=== PATIENT | male | born 1940 | race Caucasian/White ===

== ENCOUNTER 2024-03-26 03:51 | Emergency (ER) | payer MEDICARE, SELFPAY ==
[2024-03-26 04:02] VITALS: BP 152/80
[2024-03-26 04:37] VITALS: BMI 24.4
[2024-03-26 05:03] LABS: % Basophils 0.5 % (0-2); % Eosinophils 3.6 % (0-6); % Immature Granulocytes 0.3 % (0-0.5); % Lymphocytes 11.5 % (20.5-51.1); % Monocytes 9.6 % (1.7-9.3); % Neutrophils 74.5 % (42.2-75.2); Absolute Eosinophils 0.3 10^3/uL (0-0.7); Absolute Lymphocytes 0.9 10^3/uL (1.2-3.4); Absolute Monocytes 0.7 10^3/uL (0.1-0.6); Absolute Neutrophils 5.6 10^3/uL (1.4-6.5); Hematocrit 36.5 % (39.0-52.0); Hemoglobin 12.2 g/dL (13.0-18.0); Mean Corp Hgb Conc. 33.4 g/dL (33.0-37.0); Mean Corpuscular Hgb 32.6 pg (27.0-31.0); Mean Corpuscular Volume 97.6 fL (80.0-94.0); Mean Platelet Volume 10.5 fL (7.4-10.4); Nucleated Red Blood Cells % 0 % (-); Platelet Count 161 10^3/uL (130-400); Red Blood Cell Count 3.74 10^6/uL (4.70-6.10); Red Cell Dist. Width 13.5 % (11.5-14.5); White Blood Cell Count 7.5 10^3/uL (4.8-10.8)
[2024-03-26 05:26] LABS: ALT (SGPT) 18 U/L (0-50); AST (SGOT) 32 U/L (17-59); Albumin 3.5 g/dl (3.5-5.0); Alkaline Phosphatase 95 U/L (38-126); Blood Urea Nitrogen 33 mg/dl (9-20); Calcium 9.2 mg/dl (8.4-10.2); Carbon Dioxide 29 mmol/L (22-30); Chloride 105 mmol/L (98-107); Estimated Creatinine Clearance 51 ml/min; Glucose 96 mg/dl (70-99); Potassium 4.8 mmol/L (3.5-5.1); Sodium 138 mmol/L (135-145); Total Bilirubin 0.6 mg/dl (0.2-1.3); Total Protein 6.4 g/dl (6.3-8.2); eGFR > 60.00
--- NOTE | 2024-03-26 06:24 | ED.GENMED ---
History of Present Illness
General
Chief Complaint: Abdominal Pain
Source: patient
Time Seen by Provider: 03/26/24 05:07
Travel History
Have you had any contact with someone who has COVID-19?: No
Do you have any symptoms of coronavirus? Fever > 100 degrees, chills, cough, shortness of breath, sore throat, loss of taste or smell, muscle aches, or headache?: No
History of Present Illness
History of Present Illness:
83-year-old male presents to the emergency room complaining of abdominal pain. Pain is located in the epigastrium. It began around 11:30 PM. He describes it as a constant pain that is a 7 out of 10 currently. Nothing seems to make it better or
worse. Not worse with any movement. He denies associated nausea, vomiting, diarrhea or constipation. He denies any history of abdominal surgery. He did not take any medication at home for the pain.
Past History
Past History
ED Past Medical History: Arrthythmia (afib)
Social History
Tobacco: Non-smoker
Alcohol: None
Drug: None
Living: with family
Employment: Retired
Family History
Family History: Other (n.c)
Phy Exam
Physical Exam
Physical Exam:
General: Awake, Alert, Oriented X3. No acute distress.
Vitals: unremarkable
Head: Atraumatic
Eyes: Pupils equal, EOMI
Throat: Airway intact, no exudates
Neck: Trachea midline
Lungs: Clear and equal b/l
Heart: Regular rate, no murmurs
Abd: Soft, tender diffusely but somewhat more tender in the upper abdomen, No pulsatile mass
Neuro: Nonfocal
Skin: Warm, dry, no rash
Extremities: pulses equal b/l, no edema
Course
Orders/Labs/Results
Orders:
Orders
03/26/24 04:53
Complete Blood Count/With Diff Urgent
Comprehensive Metabolic Panel Urgent
Lipase Urgent
Comment: ADD ON
03/26/24 06:22
Add On- LAB Urgent
Tests Added?: lipase
Electrocardiogram (*1) Urgent
Reason for Study: Bradycardia / Tachycardia
EKG- Treatment ONCE
03/26/24 06:23
CT Abd/pelvis W Iv Cont Urgent
Comment:
Reason For Exam: diffuse abd pain
0.9% Sodium Chloride 500 ml [Nss] 500 ml IV BOLUS
HYDROmorphone [Dilaudid] 0.5 mg IV NOW STA
03/26/24 08:23
Urinalysis Reflex To Culture Urgent
Date Specimen was Collected: 03/26/24
Time Specimen was Collected: 08:20
Urine Microscopic Reflex Cult Urgent
Abnormal Lab Results
03/26/24 03/26/24
04:53 08:23
RBC 3.74 L 10^6/uL
(4.70-6.10)
Hgb 12.2 L g/dL
(13.0-18.0)
Hct 36.5 L %
(39.0-52.0)
MCV 97.6 H fL
(80.0-94.0)
MCH 32.6 H pg
(27.0-31.0)
MPV 10.5 H fL
(7.4-10.4)
Absolute Lymphs (auto) 0.9 L 10^3/uL
(1.2-3.4)
Absolute Monos (auto) 0.7 H 10^3/uL
(0.1-0.6)
Lymphocytes % 11.5 L %
(20.5-51.1)
Monocytes % 9.6 H %
(1.7-9.3)
BUN 33 H mg/dl
(9-20)
Ur Occult Blood Reflex Trace A
(Negative)
Urine RBC 16-20 A /HPF
(0-2)
Urine Bacteria (Reflex) Few A
(Negative)
03/26/24 04:53
03/26/24 04:53
Vital Signs
Initial and Last Documented VS:
Initial Vital Signs
Temp Pulse Resp BP Pulse Ox
97.6 F 68 24 152/80 97
03/26/24 04:02 03/26/24 04:02 03/26/24 04:02 03/26/24 04:02 03/26/24 04:02
Last Documented Vital Signs
Temp Pulse Resp BP Pulse Ox
97.6 F 54 14 180/81 97
03/26/24 04:02 03/26/24 06:44 03/26/24 06:44 03/26/24 08:06 03/26/24 06:23
MDM/Problems Addressed
Differential Diagnosis Includes:
cholecystitis, gastritis, kidney stone, UTI
MDM/Problems Addressed:
Patient presents with upper abdominal pain. Also some pain in his back. CT shows hydronephrosis on the left. There is a contrast level noted on delayed images suggesting poor urine flow through the ureter. Beam hardening obscures the distal
ureter and bladder. Patient's urinalysis shows blood in the urine. The overall picture seems consistent with a kidney stone. Do not know the size of the stone statistically speaking it should pass spontaneously. Will treat with analgesia,
antiemetics and the patient will follow-up with his urologist who was not at [facility] urologist. He was given lab results and a copy of his CT scan to take with him.
*Radiology
Radiology exam reviewed: radiology read reviewed
*Pulse Oximetry
Patient hypoxic: no
*EKG
Interpreted by ED Provider?: Yes
Interpretation: abnormal
Heart Rate: 54
Rate: bradycardiac
Rhythm: sinus
[place]: normal axis
Interval: normal interval
QRS Pattern: normal QRS
Ischemia: no ischemia
*Fashion Adviser Interpretation
Rate: bradycardiac
Interpretation: abnormal
Rhythm: sinus
*Critical Care Note
Total Time (30-74mins, 75-104mins- exclusive of procedures): Not Applicable
Patient Management
Social determinants of health affecting care: Strong social support
ED Attending Note
-
Portions of this chart may have been created with voice recognition software.� Occasional wrong word or��sound alike� substitutions may have occurred due to the inherent limitations of voice recognition software.
Discharge Plan
Departure
Patient Disposition: Home (Routine Discharge)
Date of Disposition: 03/26/24
Time of Disposition: 09:13
Patient with high blood pressure during this ER visit?: No
Condition: Fair
Discharge Problem:
Kidney stone
Instructions: Kidney Stones (DC), BLOOD PRESSURE
Prescriptions:
New
oxycodone 5 mg tablet
5 mg PO Q6H PRN (Reason: Pain) Qty: 12 0RF
ondansetron 4 mg tablet,disintegrating
4 mg PO TID PRN (Reason: nausea and vomiting) 5 Days Qty: 20 0RF
No Action
amiodarone 200 mg Tablet
200 mg PO DAILY
Eliquis 2.5 mg Tablet
2.5 mg PO BID
Theragen Tablet
1 tab PO DAILY
saw palmetto 160 mg Capsule
160 mg PO DAILY
finasteride 5 mg Tablet
5 mg PO DAILY
alfuzosin 10 mg Tablet Extended Release 24 Hr
10 mg PO DAILY
calcium carbonate-vitamin D3 [Calcium 500 + D (D3)] 500 mg-3.125 mcg (125 unit) Tablet
1 tab PO DAILY
omega 9-bbc-oye-fish oil [Fish Oil] 1,000 mg (120 mg-180 mg) Capsule
1 cap PO DAILY
Myrbetriq 25 mg Tablet Extended Release 24 Hr
25 mg PO DAILY
turmeric 400 mg Capsule
720 mg PO DAILY
cephalexin 500 mg capsule
500 mg PO Q6H 10 Days Qty: 40 0RF
doxycycline hyclate 100 mg capsule
100 mg PO BID 10 Days Qty: 20 0RF
Referrals:
PRIVATE,PHYSICIAN [Family Provider] -
Interventions
Interventions:
*Risk Screen - Suicide Last Done: 03/26/24 04:02
*General Assessment Last Done: 03/26/24 07:10
*Neglect/Abuse Screening Last Done: 03/26/24 04:02
ED- Fall Risk Assessment Last Done: 03/26/24 08:09
*ED COVID-19 Vaccine History Last Done: 03/26/24 07:10
*Nursing Disposition Last Done: 03/26/24 09:27
ZB-Fgmgiu-Lkkkidceda Assessment Last Done: 03/26/24 04:37
Discharge Date and Time
Discharge Date/Time: 03/26/24 09:28
Print Language: CHADIAN
[2024-03-26 06:35] VITALS: BP 175/88
[2024-03-26] MEDS: DILAUDID 0.5 MG IV (06:38)
[2024-03-26] MEDS: NSS 500 IV (06:39)
[2024-03-26 07:07] VITALS: BP 181/82
[2024-03-26 07:18] LABS: Lipase 81 U/L (23-300)
[2024-03-26 08:06] VITALS: BP 180/81
[2024-03-26 08:46] LABS: Urine Albumin Negative (Neg - Trace); Urine Bilirubin Negative (Negative); Urine Character Clear (Clear); Urine Color Yellow; Urine Glucose Negative (Negative); Urine Ketone Negative (Negative); Urine Leukocyte Negative (Negative); Urine Nitrite Negative (Negative); Urine Occult Blood Trace (Negative); Urine Urobilinogen Negative (Neg - 1+)
[2024-03-26 09:01] LABS: Urine White Cell 0-2 /HPF (0-5)
[2024-03-26 09:02] LABS: Urine Hyaline Cast 0-2 /LPF (0-2)
[2024-03-26 09:03] LABS: Urine Red Blood Cell 16-20 /HPF (0-2)
[2024-03-26 09:04] LABS: Urine Bacteria Few (Negative)
== END 2024-03-26 09:28 | disposition home or self-care (01) ==
LOC: EMR 03:51
PROVIDERS: Student in an Organized Health Care Education/Training Program; EMERGENCY PHYSICIAN Emergency Medicine
DX: N13.2 Hydronephrosis with renal and ureteral calculous obstruction (principal); R31.9 Hematuria, unspecified; I48.91 Unspecified atrial fibrillation; Z79.01 Long term (current) use of anticoagulants; Z88.0 Allergy status to penicillin
CPT/HCPCS: 99285; 96361; 96374; 74177; 80053; 81003; 81015; 83690; 85025; 93005; Q9967

== ENCOUNTER 2024-05-14 13:49 | Emergency (ER) | payer MEDICARE, SELFPAY ==
[2024-05-14] VITALS (7 sets, daily range): BP systolic 135–154; BP diastolic 71–81; PULSE 48–56; BMI 23.4
[2024-05-14 14:13] LABS: % Basophils 0.4 % (0-2); % Eosinophils 2.4 % (0-6); % Immature Granulocytes 0.3 % (0-0.5); % Lymphocytes 11.5 % (20.5-51.1); % Monocytes 9.7 % (1.7-9.3); % Neutrophils 75.7 % (42.2-75.2); Absolute Eosinophils 0.2 10^3/uL (0-0.7); Absolute Lymphocytes 0.8 10^3/uL (1.2-3.4); Absolute Monocytes 0.7 10^3/uL (0.1-0.6); Absolute Neutrophils 5.4 10^3/uL (1.4-6.5); Hematocrit 29.8 % (39.0-52.0); Hemoglobin 9.9 g/dL (13.0-18.0); Mean Corp Hgb Conc. 33.2 g/dL (33.0-37.0); Mean Corpuscular Hgb 32.9 pg (27.0-31.0); Nucleated Red Blood Cells % 0 % (-); Platelet Count 203 10^3/uL (130-400); Red Blood Cell Count 3.01 10^6/uL (4.70-6.10); Red Cell Dist. Width 14.2 % (11.5-14.5); White Blood Cell Count 7.2 10^3/uL (4.8-10.8)
--- NOTE | 2024-05-14 14:14 | ED.GENMED ---
History of Present Illness
General
Chief Complaint: Dizziness
Source: patient and spouse
Time Seen by Provider: 05/14/24 13:58
History of Present Illness
History of Present Illness:
83-year-old male with past medical history of atrial fibrillation status post left knee replacement 1 month ago presenting to the emergency department for evaluation of approximately 1 month of intermittent lightheadedness and dizziness, worse over
the last week with the patient describing 2 different types of dizziness stating that often times when he goes from a sitting to standing position will feel lightheaded and sometimes almost syncopized but has also experienced 2 episodes in the last
week of vertigo where he describes the room spinning and then will resolve once he sits still. Patient denies any other symptoms including headache, visual disturbances, focal weakness or numbness, chest pain, palpitations, shortness of breath,
fever or recent upper respiratory infections. Denies any history of similar. Has not sought any medical care up until today when he went to the primary care doctor at [facility] where the patient and his spouse reside and they were referred to
the emergency department for further evaluation.
Past History
Past History
ED Past Medical History: Arrthythmia (afib)
ED Past Surgical History: Orthopedic
Social History
Tobacco: Non-smoker
Alcohol: None
Drug: None
Personal:
Living: with family
Employment: Retired
Family History
Family History: Other (No history of stroke or neurologic events)
Review of Systems
Review of Systems
All Other Systems: ROS reviewed and negative except as documented in HPI and ROS
Phy Exam
Physical Exam
Physical Exam:
GENERAL: Alert , in no apparent distress
HEAD: NCAT
EYE: pupils equal and reactive, PERRL, EOMI, no nystagmus
NECK: Supple
ENT: o/p clr, mmm.
CARDIAC: Bradycardic rate and rhythm, reportedly normal per patient, systolic murmur noted
LUNGS: Clear breath sounds bilaterally, no acute respiratory distress, no wheezes/rales/rhonchi
NEUROLOGICAL: Alert and oriented, no focal neuro deficits, No dysmetria or ataxia appreciated
SKIN: Warm and dry, skin intact.
MUSCULOSKELETAL: No edema, well perfused.
PSYCH: Normal and appropriate interaction.
Scores
Heart Failure Risk
Heart Failure Risk Score: Not Applicable
Heart Score for Chest Pain Patients
STEMI patient?: Not applicable
Withdrawal Assessment of Alcohol
Withdrawal Assessment Completed?: Not applicable
Course
Orders/Labs/Results
Orders:
Orders
05/14/24 13:52
Electrocardiogram (*1) Urgent
Reason for Study: Chest Pain
Cardiac Monitoring- Treatment ONCE
EKG- Treatment ONCE
IV Insert/Care/Rem.- Treatment PRN
O2 Therapy [RESP] Urgent
Titrate/Wean O2 to maintain O2 sat greater than (%): 90
Special Instructions: Maintain sats >/=90%
Pulse Ox/spot Check [RESP] Urgent
Quantity: 1
Special Instructions: ON ROOM AIR
05/14/24 14:06
Complete Blood Count/With Diff Urgent
Comprehensive Metabolic Panel Urgent
Troponin I Urgent
05/14/24 14:11
Orthostatic VS- Treatment ONCE
Meclizine [Antivert] 25 mg PO NOW STA
PT Consult [Pt Eval And Treat] Urgent
Treatment: vertigo
Activity Level: Ambulate
05/14/24 14:13
CT Head W/o Iv Contrast Urgent
Comment:
Reason For Exam: dizziness/vertigo, hx of afib
05/14/24 15:42
Urinalysis Reflex To Culture Urgent
Abnormal Lab Results
05/14/24
14:06
RBC 3.01 L 10^6/uL
(4.70-6.10)
Hgb 9.9 L g/dL
(13.0-18.0)
Hct 29.8 L %
(39.0-52.0)
MCV 99.0 H fL
(80.0-94.0)
MCH 32.9 H pg
(27.0-31.0)
Absolute Lymphs (auto) 0.8 L 10^3/uL
(1.2-3.4)
Absolute Monos (auto) 0.7 H 10^3/uL
(0.1-0.6)
Neutrophils % 75.7 H %
(42.2-75.2)
Lymphocytes % 11.5 L %
(20.5-51.1)
Monocytes % 9.7 H %
(1.7-9.3)
Chloride 108 H mmol/L
(98-107)
BUN 28 H mg/dl
(9-20)
Glucose 103 H mg/dl
(70-99)
Total Protein 5.7 L g/dl
(6.3-8.2)
Albumin 3.0 L g/dl
(3.5-5.0)
05/14/24 14:06
05/14/24 14:06
Vital Signs
Initial and Last Documented VS:
Initial Vital Signs
Pulse Ox
98
05/14/24 13:54
Last Documented Vital Signs
Temp Pulse Resp BP Pulse Ox
97.5 F 53 23 149/73 99
05/14/24 13:55 05/14/24 15:30 05/14/24 15:30 05/14/24 15:27 05/14/24 15:30
MDM/Problems Addressed
Differential Diagnosis Includes:
Orthostasis, BPPV, labyrinthitis, CVA considered given patient's history of A-fib and is on a half dose of Eliquis, symptomatic bradycardia, cardiac valvular dysfunction
MDM/Problems Addressed:
83-year-old male presenting to the emergency department for evaluation of 1 month of lightheadedness but also experiencing intermittent episodes of vertigo. At present time patient reports he is asymptomatic but also notes that he is not going from
a sitting to standing position when symptoms seem to be worse. Patient was noted to be bradycardic however he reports that this is his normal. Will check labs, orthostatic vital signs, CT of the head. Will also obtain physical therapy
consultation for vertigo evaluation. Meclizine ordered for vertigo. Reassessment pending
Chronic conditions affecting care: Arrhythmia
*Radiology
Radiology exam reviewed: radiology read reviewed
*Pulse Oximetry
Patient hypoxic: no
*EKG
Interpreted by ED Provider?: Yes
Comparison EKG: changes noted
Heart Rate: 49
Rate: bradycardiac
Rhythm: sinus arrhythmia
[place]: left axis deviation
*Train Station Agent Interpretation
Rate: bradycardiac
Rhythm: sinus
*Critical Care Note
Total Time (30-74mins, 75-104mins- exclusive of procedures): Not Applicable
Data Reviewed
Review of Other/Old Records Reveals: Records
Source: patient
Comment
Comment:
Patient labs show mild anemia and pre-renal azotemia. Anemia could be from recent surgery. Patient also noted he did have small blood in urine a little bit ago but now this is clear. Prerenal azotemia likely from patient not drinking enough fluid as
he notes he has been told in the past to increase his water intake. Patient orthostatics without any abnormalities. Notes his vertigo sensation is resolved with antivert given. Awaiting PT consult with anticipated discharge home. I did discuss with
patient he will need to follow up with PCP to have his hgb rechecked as well as repeat UA.
Patient Management
Escalation/DeEscalation of care consider admission/obs:
Patient seen by physical therapy and was able to ambulate without any evidence for ataxia. At this time patient is stable for discharge home. Prescription for meclizine provided. Patient will follow-up with his primary care provider as well as
with outpatient physical therapy for continued vestibular treatment. Patient aware of return precautions to the ER. Otherwise stable for discharge home.
ED Attending Note
-
Portions of this chart may have been created with voice recognition software.� Occasional wrong word or��sound alike� substitutions may have occurred due to the inherent limitations of voice recognition software.
Discharge Plan
Departure
Patient Disposition: Home (Routine Discharge)
Date of Disposition: 05/14/24
Time of Disposition: 16:48
Patient with high blood pressure during this ER visit?: Yes
Discharge Problem:
Vertigo
Instructions: Vertigo (a Type of Dizziness) (DC)
Prescriptions:
New
meclizine 25 mg tablet
25 mg PO BID PRN (Reason: dizziness) Qty: 10 0RF
No Action
amiodarone 200 mg Tablet
200 mg PO DAILY
Eliquis 2.5 mg Tablet
2.5 mg PO BID
Theragen Tablet
1 tab PO DAILY
saw palmetto 160 mg Capsule
160 mg PO DAILY
finasteride 5 mg Tablet
5 mg PO DAILY
alfuzosin 10 mg Tablet Extended Release 24 Hr
10 mg PO DAILY
calcium carbonate-vitamin D3 [Calcium 500 + D (D3)] 500 mg-3.125 mcg (125 unit) Tablet
1 tab PO DAILY
omega 4-sba-qxa-fish oil [Fish Oil] 1,000 mg (120 mg-180 mg) Capsule
1 cap PO DAILY
Myrbetriq 25 mg Tablet Extended Release 24 Hr
25 mg PO DAILY
turmeric 400 mg Capsule
720 mg PO DAILY
cephalexin 500 mg capsule
500 mg PO Q6H 10 Days Qty: 40 0RF
doxycycline hyclate 100 mg capsule
100 mg PO BID 10 Days Qty: 20 0RF
oxycodone 5 mg tablet
5 mg PO Q6H PRN (Reason: Pain) Qty: 12 0RF
ondansetron 4 mg tablet,disintegrating
4 mg PO TID PRN (Reason: nausea and vomiting) 5 Days Qty: 20 0RF
Referrals:
Faith Rhodes MD [Family Provider] -
Interventions
Interventions:
*Risk Screen - Suicide Last Done: 05/14/24 14:03
*General Assessment Last Done: 05/14/24 14:03
*Neglect/Abuse Screening Last Done: 05/14/24 14:03
ED- Fall Risk Assessment Last Done: 05/14/24 14:04
*ED COVID-19 Vaccine History Last Done: 05/14/24 14:03
ED- Neurological Assessment Last Done: 05/14/24 14:04
ED- Cardiac Assessment Last Done: 05/14/24 14:04
Discharge Date and Time
Print Language: YAKUT
[2024-05-14 14:40] LABS: Troponin I < 0.012 ng/ml
[2024-05-14 14:42] LABS: ALT (SGPT) 13 U/L (0-50); AST (SGOT) 24 U/L (17-59); Alkaline Phosphatase 92 U/L (38-126); Blood Urea Nitrogen 28 mg/dl (9-20); Calcium 8.8 mg/dl (8.4-10.2); Carbon Dioxide 23 mmol/L (22-30); Chloride 108 mmol/L (98-107); Estimated Creatinine Clearance 56 ml/min; Glucose 103 mg/dl (70-99); Potassium 3.9 mmol/L (3.5-5.1); Sodium 136 mmol/L (135-145); Total Bilirubin 0.5 mg/dl (0.2-1.3); Total Protein 5.7 g/dl (6.3-8.2); eGFR > 60.00
[2024-05-14] MEDS: ANTIVERT 25 MG PO (14:56)
== END 2024-05-14 17:25 | disposition home or self-care (01) ==
LOC: EMR 13:49
PROVIDERS: EMERGENCY PHYSICIAN Emergency Medicine; FAMILY PHYSICIAN Internal Medicine Geriatric Medicine
DX: R42 Dizziness and giddiness (principal); R00.1 Bradycardia, unspecified; R79.89 Other specified abnormal findings of blood chemistry; R03.0 Elevated blood-pressure reading, without diagnosis of hypertension; D64.9 Anemia, unspecified; I48.91 Unspecified atrial fibrillation; Z96.652 Presence of left artificial knee joint; Z98.890 Other specified postprocedural states; Z79.01 Long term (current) use of anticoagulants; Z88.0 Allergy status to penicillin
CPT/HCPCS: 99285; 94760; 70450; 80053; 84484; 85025; 93005

== ENCOUNTER → 2024-05-27 07:56 | Outpatient (REF) | payer MEDICARE, SELFPAY | LOC: WOUND 07:56 | PROVIDERS: ATTENDING PHYSICIAN Surgery; FAMILY PHYSICIAN Internal Medicine Geriatric Medicine | DX: L89.152 Pressure ulcer of sacral region, stage 2 (principal); L89.210 Pressure ulcer of right hip, unstageable; I48.91 Unspecified atrial fibrillation; Z79.01 Long term (current) use of anticoagulants | CPT/HCPCS: 99204 ==

== ENCOUNTER → 2024-06-02 11:22 | Outpatient (REF) | payer MEDICARE, SELFPAY | LOC: WOUND 11:22 | PROVIDERS: ATTENDING PHYSICIAN Surgery; FAMILY PHYSICIAN Internal Medicine Geriatric Medicine | DX: L89.152 Pressure ulcer of sacral region, stage 2 (principal); L89.210 Pressure ulcer of right hip, unstageable; I48.91 Unspecified atrial fibrillation; Z79.01 Long term (current) use of anticoagulants | CPT/HCPCS: 11042 ==

== ENCOUNTER → 2024-06-16 13:24 | Outpatient (REF) | payer MEDICARE, SELFPAY | LOC: WOUND 13:24 | PROVIDERS: ATTENDING PHYSICIAN Surgery; FAMILY PHYSICIAN Internal Medicine Geriatric Medicine | DX: L89.152 Pressure ulcer of sacral region, stage 2 (principal); L89.210 Pressure ulcer of right hip, unstageable; I48.91 Unspecified atrial fibrillation; Z79.01 Long term (current) use of anticoagulants | CPT/HCPCS: 99213 ==

== ENCOUNTER → 2024-06-26 13:12 | Outpatient (REF) | payer MEDICARE, SELFPAY | LOC: WOUND 13:12 | PROVIDERS: ATTENDING PHYSICIAN Surgery; FAMILY PHYSICIAN Internal Medicine Geriatric Medicine | DX: L89.152 Pressure ulcer of sacral region, stage 2 (principal); L89.210 Pressure ulcer of right hip, unstageable; I48.91 Unspecified atrial fibrillation; Z79.01 Long term (current) use of anticoagulants | CPT/HCPCS: 11042 ==

== ENCOUNTER 2024-08-10 09:58 | Emergency (ER) | payer MEDICARE, SELFPAY ==
--- NOTE | 2024-08-10 10:02 | ED.GENMED ---
History of Present Illness
<Eva Ayala PA-C - Last Filed: 08/10/24 13:19>
General
Chief Complaint: Musculo-Skeletal Complaint
Source: patient
Exam Limitations: none
Time Seen by Provider: 08/10/24 10:00
Nursing documentation reviewed up to this point in time: agreed with
History of Present Illness
History of Present Illness:
83-year-old male with past medical history of A-fib on Eliquis, vertigo presents emergency department today with concerns of right sided hip pain following a fall. Patient reports that he lives at [facility] with his and states that when he
got out of bed this morning morning, he got a sudden xie of vertigo and lightheadedness and fell onto his right side. He not lose consciousness. He did not hit his head, he denies neck pain. He got up on his own without any issues and walked
back to bed. When he tried to go back to bed, he noticed a wet sensation under his right hip and noticed that his pressure wound over his hip was bleeding. He states that his and him could not get the bleeding under control. She also started
to have an acute worsening of his hip pain. He does have a hip replacement on that side. Denies any other concerns at this time, he states that he no longer feels dizzy or lightheadedness or sensation of vertigo, states that he did not injure his
left side, denies any pains upper extremities.
Past History
<Eva Ayala PA-C - Last Filed: 08/10/24 13:19>
Past History
ED Past Medical History: Arrthythmia (afib)
ED Past Surgical History: Orthopedic
Social History
Tobacco: Non-smoker
Alcohol: None
Drug: None
Personal:
Living: with family
Employment: Retired
Family History
Family History: Other (No history of stroke or neurologic events)
Review of Systems
<Eva Ayala PA-C - Last Filed: 08/10/24 13:19>
Review of Systems
All Other Systems: ROS reviewed and negative except as documented in HPI and ROS
Phy Exam
<Eva Ayala PA-C - Last Filed: 08/10/24 13:19>
Physical Exam
Physical Exam:
General: Patient is well appearing and in no acute distress; non-toxic
Skin: There is a 3.5 cm superficial pressure ulcer noted to the right anterior hip with active bleeding noted
Head: Normocephalic, atraumatic
Eyes: Sclera non-icteric. EOMs intact.
Neck: No tenderness to palpation of the cervical spine
Cardiac: Patient is bradycardic otherwise regular rhythm, no murmurs
Peripheral Vascular: No lower extremity swelling or edema, 2+ DP and PT pulses bilaterally
Pulm: Normal respiratory effort, no wheezes, rales, rhonchi
Musculoskeletal: Right hip pain with flexion, swelling noted surrounding proximal femur
Neuro: CN II-XII intact, no focal neurologic deficits. Sensation intact.
Psychiatric: Appropriate mood and affect.
Course
<Eva Ayala PA-C - Last Filed: 08/10/24 13:19>
Orders/Labs/Results
Orders:
Orders
08/10/24 10:20
Morphine Sulfate 4 mg IV NOW STA
CR Hip - RT w/wo Pel 2-3 Vw* Urgent
Reason For Exam: right hip pain following fall
Include a pelvis x-ray?: Yes
Vital Signs
Initial and Last Documented VS:
Initial Vital Signs
Temp Pulse Resp BP Pulse Ox
97.9 F 50 16 174/78 99
08/10/24 10:04 08/10/24 10:04 08/10/24 10:04 08/10/24 10:04 08/10/24 10:04
Last Documented Vital Signs
Temp Pulse Resp BP Pulse Ox
97.9 F 52 24 172/81 98
08/10/24 10:04 08/10/24 12:30 08/10/24 12:30 08/10/24 12:00 08/10/24 12:30
<Vladimir Small DO - Last Filed: 08/10/24 12:10>
Orders/Labs/Results
Orders:
Orders
08/10/24 10:20
Morphine Sulfate 4 mg IV NOW STA
CR Hip - RT w/wo Pel 2-3 Vw* Urgent
Reason For Exam: right hip pain following fall
Include a pelvis x-ray?: Yes
Vital Signs
Initial and Last Documented VS:
Initial Vital Signs
Temp Pulse Resp BP Pulse Ox
97.9 F 50 16 174/78 99
08/10/24 10:04 08/10/24 10:04 08/10/24 10:04 08/10/24 10:04 08/10/24 10:04
Last Documented Vital Signs
Temp Pulse Resp BP Pulse Ox
97.9 F 52 24 172/81 98
08/10/24 10:04 08/10/24 12:30 08/10/24 12:30 08/10/24 12:00 08/10/24 12:30
<Eva Ayala PA-C - Last Filed: 08/10/24 13:19>
MDM/Problems Addressed
Differential Diagnosis Includes:
femoral neck fracture, hip dislocation, sprain/strain
MDM/Problems Addressed:
83-year-old male past medical history of A-fib on [facility] presents emergency department today with right hip pain following a fall that occurred last night. Patient was able to get up on his own and ambulate without difficulty and returned to sleep
when he started to feel moisture underneath his right hip. Patient then noticed that his chronic pressure decubitus wound was bleeding. Patient states that him and his in her apartment at [facility] could not get the bleeding under
control. On physical exam, he is well-appearing, he has around a 3.5 cm decubitus ulcer on the right with active bleeding, he also has swelling surrounding this area, likely representing palpable hematoma. He has pain with hip flexion. He insist
that he did not hit his head or injure his neck, he is no tenderness palpation of the cervical spine, no signs of head trauma. His x-ray is negative for fracture, does show prominent soft tissue swelling lateral to greater trochanter, likely since
hematoma. Patient is not in A-fib currently, I did recommend taking his today to his vending machine filler regarding possibly with holding Eliquis for few days. Discussed wound care with patient, we did place Surgicel over the wound to assist with
bleeding. Patient states that he feels safe to go home with the help of his walker and his at home. He states that he did not have any issues ambulating earlier. Patient stable for discharge. Patient has had no symptoms of dizziness or
vertigo while here in the emergency department
Chronic conditions affecting care:
afib on eliquis
<Eva Ayala PA-C - Last Filed: 08/10/24 13:19>
*Pulse Oximetry
Patient hypoxic: no
*Critical Care Note
Total Time (30-74mins, 75-104mins- exclusive of procedures): Not Applicable
Data Reviewed
Review of Other/Old Records Reveals: Records (Reviewed previous ER physician documentation from 05/14/2024, patient seen for vertigo, patient had PT evaluation consistent with peripheral vertigo,) and Discharge Summary (No discharge summary in
[facility] to review )
Source: patient and records
Prescriptions/Medications Considered But Not Given:
n/a
Further Testing Considered But Not Given:
n/a
<Eva Ayala PA-C - Last Filed: 08/10/24 13:19>
Patient Management
Escalation/DeEscalation of care consider admission/obs:
admit not indicated, patient stable for discharge
ED Attending Note
<Eva Ayala PA-C - Last Filed: 08/10/24 13:19>
-
Portions of this chart may have been created with voice recognition software.� Occasional wrong word or��sound alike� substitutions may have occurred due to the inherent limitations of voice recognition software.
<Vladimir Small DO - Last Filed: 08/10/24 12:10>
ED Attending Note
Patient seen and examined by attending physician: Yes
I performed the substantive portion of visit, reviewed & personally made and approve the management plan that is documented in note by myself or XOCHILT.: Yes
I performed a history and physical exam of patient and discussed management with resident, I reviewed resident's note and agree with documented findings and plan of care.: Yes
ED Attending Note:
I evaluated the patient at bedside. There is a soft tissue hematoma near the site of the decubitus ulcer/chronic wound over the right greater trochanteric region. Mild oozing of blood noted�Surgicel pressure dressing placed.
Discharge Plan
Departure
Patient Disposition: Home (Routine Discharge)
Date of Disposition: 08/10/24
Time of Disposition: 12:29
Patient with high blood pressure during this ER visit?: Yes
Condition: Good
Discharge Problem:
Acute pain of right hip, Hematoma
Instructions: Hip Pain ED, BLOOD PRESSURE, Hematoma
Prescriptions:
No Action
amiodarone 200 mg Tablet
200 mg PO DAILY
Eliquis 2.5 mg Tablet
2.5 mg PO BID
Theragen Tablet
1 tab PO DAILY
saw palmetto 160 mg Capsule
160 mg PO DAILY
finasteride 5 mg Tablet
5 mg PO DAILY
alfuzosin 10 mg Tablet Extended Release 24 Hr
10 mg PO DAILY
calcium carbonate-vitamin D3 [Calcium 500 + D (D3)] 500 mg-3.125 mcg (125 unit) Tablet
1 tab PO DAILY
omega 2-qjd-vgm-fish oil [Fish Oil] 1,000 mg (120 mg-180 mg) Capsule
1 cap PO DAILY
Myrbetriq 25 mg Tablet Extended Release 24 Hr
25 mg PO DAILY
turmeric 400 mg Capsule
720 mg PO DAILY
cephalexin 500 mg capsule
500 mg PO Q6H 10 Days Qty: 40 0RF
doxycycline hyclate 100 mg capsule
100 mg PO BID 10 Days Qty: 20 0RF
oxycodone 5 mg tablet
5 mg PO Q6H PRN (Reason: Pain) Qty: 12 0RF
ondansetron 4 mg tablet,disintegrating
4 mg PO TID PRN (Reason: nausea and vomiting) 5 Days Qty: 20 0RF
meclizine 25 mg tablet
25 mg PO BID PRN (Reason: dizziness) Qty: 10 0RF
Referrals:
Faith Rhodes MD [Family Provider] -
[facility] - Call in 1-3 days for appt
Activity Restrictions/Additional Instructions:
Please change nonadherent pad once daily. You can put bacitracin over the wound, followed by nonadherent pads. Please not remove Surgicel. This will dissolve. Please follow-up with your wound care nurse.
Please use your walker at all times at home. Please call your vending machine filler regarding dosing considering your right hip hematoma.
Please return to the emergency department should you experience dizziness, lightheadedness, chest pain, shortness of breath, weakness on one-sided body versus the other, difficulty ambulating, headache, difficulty speaking, or any other signs or
symptoms concerning to you.
Interventions
Interventions:
*Risk Screen - Suicide Last Done: 08/10/24 10:04
*General Assessment Last Done: 08/10/24 10:04
*Neglect/Abuse Screening Last Done: 08/10/24 10:04
ED- Fall Risk Assessment Last Done: 08/10/24 10:04
*ED COVID-19 Vaccine History Last Done: 08/10/24 10:04
*Nursing Disposition Last Done: 08/10/24 12:54
ED-Musculoskeletal Assessment Last Done: 08/10/24 10:04
Discharge Date and Time
Discharge Date/Time: 08/10/24 12:55
Print Language: NIGERIAN
[2024-08-10 10:04] VITALS: BP 174/78; BMI 22.4
[2024-08-10] MEDS: MORPHINE SULFATE 4 MG IV (10:32)
[2024-08-10 11:00] VITALS: BP 141/74
[2024-08-10 12:00] VITALS: BP 172/81
== END 2024-08-10 12:55 | disposition home or self-care (01) ==
LOC: EMR 09:58
PROVIDERS: EMERGENCY PHYSICIAN Emergency Medicine; FAMILY PHYSICIAN Internal Medicine Geriatric Medicine
DX: S70.01XA Contusion of right hip, initial encounter (principal); W06.XXXA Fall from bed, initial encounter; I48.91 Unspecified atrial fibrillation; Z79.01 Long term (current) use of anticoagulants
CPT/HCPCS: 99283; 73502

== ENCOUNTER 2024-09-02 14:07 | Inpatient (IN) | payer OTHER, SELFPAY ==
[2024-09-02] VITALS (9 sets, daily range): BP systolic 131–172; BP diastolic 64–81; PULSE 70; O2SAT 96; BMI 23.2; BMI 23.7
[2024-09-02] MEDS: DILAUDID 0.5 MG IV ×2 (10:05→13:36)
--- NOTE | 2024-09-02 10:09 | ED.MUSCINJ ---
HPI-Injury
General
Chief Complaint: Extremity Pain (non-traumatic)
Source: patient
Exam Limitations: none
Time Seen by Provider: 09/02/24 09:31
History of Present Illness-Injury
Initial Injury comments:
83-year-old male presents to complaining of persistent and increasing right hip pain. The pain worsened throughout the night getting up to go to the bathroom. He has a history of hip replacement on this side. He also has an ongoing wound to the
lateral aspect of his right hip. He was seen here earlier this month after a fall onto his right hip and was found not to have a fracture was found to have a hematoma. No other complaints at this time
Past History
Past History
ED Past Medical History: Arrthythmia (afib)
ED Past Surgical History: Orthopedic
Social History
Tobacco: Non-smoker
Alcohol: None
Drug: None
Personal:
Living: with family
Employment: Retired
Family History
Family History: Other (No history of stroke or neurologic events)
Phy Exam
Physical Exam
Physical Exam:
General: Well-appearing male no acute respiratory distress
HEENT: Normocephalic atraumatic
Heart: Regular rate and rhythm no murmurs
Lungs: Clear no wheeze
Musculoskeletal exam: Right hip tender laterally. The right leg is shortened compared to the left but this is chronic. Any internal or external rotation of the right hip reproduces pain
Skin: Deep wound lateral aspect right hip
Injury Course
Orders/Labs/Results
Orders:
Orders
09/02/24 09:37
CT Pelvis W/o Iv Contrast Urgent
Comment:
Reason For Exam: right hip pain
09/02/24 09:56
HYDROmorphone [Dilaudid] 0.5 mg IV NOW STA
09/02/24 10:05
Complete Blood Count/With Diff Urgent
Comprehensive Metabolic Panel Urgent
09/02/24 11:20
PT Consult [Pt Eval And Treat] Urgent
Activity Level: Ambulate
09/02/24 13:02
HYDROmorphone [Dilaudid] 0.5 mg IV NOW STA
Abnormal Lab Results
09/02/24
10:05
WBC 12.6 H 10^3/uL
(4.8-10.8)
RBC 3.32 L 10^6/uL
(4.70-6.10)
Hgb 10.4 L g/dL
(13.0-18.0)
Hct 32.3 L %
(39.0-52.0)
MCV 97.3 H fL
(80.0-94.0)
MCH 31.3 H pg
(27.0-31.0)
MCHC 32.2 L g/dL
(33.0-37.0)
Abs Immat Gran (auto) 0.1 H 10^3/uL
(0-0.05)
Absolute Neuts (auto) 10.8 H 10^3/uL
(1.4-6.5)
Absolute Lymphs (auto) 0.5 L 10^3/uL
(1.2-3.4)
Absolute Monos (auto) 0.8 H 10^3/uL
(0.1-0.6)
Neutrophils % 86.2 H %
(42.2-75.2)
Lymphocytes % 3.9 L %
(20.5-51.1)
BUN 23 H mg/dl
(9-20)
Total Protein 6.2 L g/dl
(6.3-8.2)
Albumin 2.9 L g/dl
(3.5-5.0)
09/02/24 10:05
09/02/24 10:05
MDM/Problems Addressed
Differential Diagnosis Includes:
Continued had increased right hip pain. History of right hip replacement. Consider occult fracture versus dislocation versus worsening hematoma. No fever to suggest infectious source
*Critical Care Note
Total Time (30-74mins, 75-104mins- exclusive of procedures): Not Applicable
Update Note
Update Note:
Patient had CT of pelvis today which is negative for fracture. Seen by PT unable to bear weight secondary to pain. Reexamined wound. There is a 2 cm wound on the lateral right hip with purulent drainage. No surrounding erythema. Question
possible underlying infectious process. Patient unable to COVID back to independent living at [facility]. Will keep in hospital for further evaluation
ED Attending Note
-
Portions of this chart may have been created with voice recognition software.� Occasional wrong word or��sound alike� substitutions may have occurred due to the inherent limitations of voice recognition software.
Discharge Plan
Departure
Patient Disposition: Admit
Date of Disposition: 09/02/24
Time of Disposition: 13:05
Admit to: Med/Surg
Presentation/result/management discussed w/ accepting MD/DO: Hospitalist
Discharge Problem:
Acute right hip pain
Prescriptions:
No Action
amiodarone 200 mg Tablet
200 mg PO DAILY
Eliquis 2.5 mg Tablet
2.5 mg PO BID
Theragen Tablet
1 tab PO DAILY
saw palmetto 160 mg Capsule
160 mg PO DAILY
finasteride 5 mg Tablet
5 mg PO DAILY
alfuzosin 10 mg Tablet Extended Release 24 Hr
10 mg PO DAILY
calcium carbonate-vitamin D3 [Calcium 500 + D (D3)] 500 mg-3.125 mcg (125 unit) Tablet
1 tab PO DAILY
omega 7-avi-wid-fish oil [Fish Oil] 1,000 mg (120 mg-180 mg) Capsule
1 cap PO DAILY
Myrbetriq 25 mg Tablet Extended Release 24 Hr
25 mg PO DAILY
turmeric 400 mg Capsule
720 mg PO DAILY
cephalexin 500 mg capsule
500 mg PO Q6H 10 Days Qty: 40 0RF
doxycycline hyclate 100 mg capsule
100 mg PO BID 10 Days Qty: 20 0RF
oxycodone 5 mg tablet
5 mg PO Q6H PRN (Reason: Pain) Qty: 12 0RF
ondansetron 4 mg tablet,disintegrating
4 mg PO TID PRN (Reason: nausea and vomiting) 5 Days Qty: 20 0RF
meclizine 25 mg tablet
25 mg PO BID PRN (Reason: dizziness) Qty: 10 0RF
Referrals:
Donovan Ellison DO [Primary Care Provider] -
Faith Rhodes MD [Family Provider] -
Interventions
Interventions:
*Risk Screen - Suicide Last Done: 09/02/24 09:27
*General Assessment Last Done: 09/02/24 09:27
*Neglect/Abuse Screening Last Done: 09/02/24 09:27
ED- Fall Risk Assessment Last Done: 09/02/24 11:01
*ED COVID-19 Vaccine History Last Done: 09/02/24 09:27
ED-Skin Assessment Last Done: 09/02/24 09:40
ED-Peripheral Vascular Assessment Last Done: 09/02/24 09:40
ED-Musculoskeletal Assessment Last Done: 09/02/24 09:40
Discharge Date and Time
Print Language: YAKUT
[2024-09-02 10:16] LABS: % Basophils 0.3 % (0-2); % Eosinophils 2.5 % (0-6); % Immature Granulocytes 0.5 % (0-0.5); % Lymphocytes 3.9 % (20.5-51.1); % Monocytes 6.6 % (1.7-9.3); % Neutrophils 86.2 % (42.2-75.2); Absolute Eosinophils 0.3 10^3/uL (0-0.7); Absolute Immature Granulocytes 0.1 10^3/uL (0-0.05); Absolute Lymphocytes 0.5 10^3/uL (1.2-3.4); Absolute Monocytes 0.8 10^3/uL (0.1-0.6); Absolute Neutrophils 10.8 10^3/uL (1.4-6.5); Hematocrit 32.3 % (39.0-52.0); Hemoglobin 10.4 g/dL (13.0-18.0); Mean Corp Hgb Conc. 32.2 g/dL (33.0-37.0); Mean Corpuscular Hgb 31.3 pg (27.0-31.0); Mean Corpuscular Volume 97.3 fL (80.0-94.0); Mean Platelet Volume 9.8 fL (7.4-10.4); Nucleated Red Blood Cells % 0 % (-); Platelet Count 250 10^3/uL (130-400); Red Blood Cell Count 3.32 10^6/uL (4.70-6.10); Red Cell Dist. Width 14.5 % (11.5-14.5); White Blood Cell Count 12.6 10^3/uL (4.8-10.8)
[2024-09-02 10:29] LABS: ALT (SGPT) 12 U/L (0-50); AST (SGOT) 21 U/L (17-59); Albumin 2.9 g/dl (3.5-5.0); Alkaline Phosphatase 84 U/L (38-126); Blood Urea Nitrogen 23 mg/dl (9-20); Calcium 8.4 mg/dl (8.4-10.2); Carbon Dioxide 28 mmol/L (22-30); Chloride 106 mmol/L (98-107); Estimated Creatinine Clearance 77 ml/min; Glucose 96 mg/dl (70-99); Sodium 141 mmol/L (135-145); Total Bilirubin 0.4 mg/dl (0.2-1.3); Total Protein 6.2 g/dl (6.3-8.2); eGFR > 60.00
--- NOTE | 2024-09-02 13:43 | HPS.HSE ---
Family Physician
-
Family Physician: Faith Rhodes
Chief Complaint
-
Rt Hip pain
History of Present Illness
HPI
83M HX A Fib , Bilateral hip arthroplasties with ongoing wound to lateral aspect of his right hip seen at ER:
- complaining of persistent and increasing right hip pain worsened throughout the night getting up to go to the bathroom.
- He was seen here earlier this month after a fall onto his right hip and was found not to have a fracture but hematoma.
Medical History
Past Medical History
Past Medical History: Reports Arrhythmia (A Fib )
Past Surgical History: Reports Orthopedic ( Bilateral hip arthroplasties )
Social History
Tobacco: Non-smoker
Alcohol: None
Personal:
Living: With Family
Family History
Family History: Not pertinent
Allergies / Home Medications
Allergies reflects when Allergies were last updated in [employer].
Home Medications with original date entered in [employer]
Allergy/Medication List:
Allergies
Allergy/AdvReac Type Severity Reaction Status Date / Time
Penicillins Allergy Rash Verified 08/10/24 10:13
Home Medications
alfuzosin 10 mg tablet,extended release 24 hr 10 mg PO DAILY 04/20/22
amiodarone 200 mg tablet 200 mg PO DAILY 04/20/22
apixaban 2.5 mg tablet (Eliquis) 2.5 mg PO BID 04/20/22
finasteride 5 mg tablet 5 mg PO DAILY 04/20/22
mirabegron 25 mg tablet,extended release 24 hr (Myrbetriq) 25 mg PO DAILY 04/20/22
omega 0-rgr-yew-fish oil 1,000 mg (120 mg-180 mg) capsule (Fish Oil) 1 cap PO DAILY 04/20/22
saw palmetto 160 mg capsule 160 mg PO DAILY 04/20/22
therapeutic multivitamin 1 tab PO DAILY 04/20/22
turmeric 400 mg capsule 720 mg PO DAILY 04/20/22
ondansetron 4 mg disintegrating tablet 4 mg PO TID PRN nausea and vomiting 5 days #20 tabs 03/26/24
oxycodone 5 mg tablet 5 mg PO Q6H PRN Pain #12 tabs 03/26/24
meclizine 25 mg tablet 25 mg PO BID PRN dizziness #10 tabs 05/14/24
Review of Systems
-
Constitutional: Reports No Symptoms
EENT: Reports No Symptoms
Respiratory: Reports No Symptoms
Cardiac: Reports No Symptoms
Abdomen/GI: Reports No Symptoms
: Reports No Symptoms
Musculoskeletal: Reports See HPI
Skin: Reports No Symptoms
Neurological: Reports No Symptoms
Endocrine: Reports No Symptoms
Hematologic/Lymphatic: Reports No Symptoms
Psych: Reports No Symptoms
Physical Exam
Vital Signs
Vital Signs
Temp Pulse Resp BP Pulse Ox
98.9 F 62 18 156/79 96
09/02/24 11:19 09/02/24 12:15 09/02/24 12:15 09/02/24 12:00 09/02/24 09:27
Physical Exam
General: Well Developed, Well Nourished and No Apparent Distress
HEENT: NormoCephalic, Moist mucous membranes and Atraumatic
Respiratory: Clear
Cardiac: S1/S2 and Regular Rhythm; No Murmur or Rub
GI: Soft, Non Tender, Non Distended and Normal Bowel Sounds; No Organomegaly
Rectal: Deferred by Provider
Musculoskeletal: Other (Right hip tender laterally. The right leg is shortened compared to the left but this is chronic. Any internal or external rotation of the right hip reproduces pain)
Skin: Other (deep wound ( 2cm with probe) to lateral aspect of his right hip with foul smelling purulent drainag); No Rash
Neuro: Nonfocal/grossly intact
Psych: Calm
Laboratory Results
-
09/02/24 10:05
09/02/24 10:05
Laboratory Results
Total Bilirubin 0.4 mg/dl (0.2-1.3) 09/02/24 10:05
AST 21 U/L (17-59) 09/02/24 10:05
ALT 12 U/L (0-50) 09/02/24 10:05
Alkaline Phosphatase 84 U/L (38-126) 09/02/24 10:05
Data Reviewed
-
CT Scan: Report Reviewed by me
Lab Data: Labs Reviewed by me
Impression/Plan
-
Data
WCC 12.6
Hgb 10.4 - was 9.9 on 05/14/24
Unremarkable CMP
Alb 2.9
[address] Pelvis W/o Iv Contrast
- Bilateral hip arthroplasties in anatomic position with marked beam hardening artifact.
- No gross recent cortical fracture about the bony pelvis although cannot be entirely excluded on the basis of this study.
- As seen on prior CT, mild left renal collecting system dilatation and slightly prominent left renal pelvis with course of the distal left ureter significantly obscured by beam hardening artifact.
- Small bilateral nonobstructing renal calculi.
- Sigmoid diverticulosis.
NO PRIOR hospitalist admission:
ASSESSMENT & PLAN
Pending Rx reconciliation
Worsening Rt Hip pain with acute gait dysfunction : No CT evidence of cortical fracture about the bony pelvis
Ongoing ongoing deep wound ( 2cm with probe) to lateral aspect of his right hip with foul smelling purulent drainage: POS leucocytosis but afebrile
Of note : HX POS WD Cx(09/03/20) for Citrobacter koseri and Serratia marcescens - sensitive most ABx
HX Bilateral hip arthroplasties
- Wd Cx at ER
- HX PCN allergy
- check MRSA nasal screen - hold of Vancomycin for now
- Empiric IV Meropenem
- PT/OT
- Wd care consult
- ID consult
HX AF
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
BPH
- Finasteride
DVT Px: on Eliquis
Full code
IP MS
[2024-09-02] MEDS: MERREM 500 MG IV ×2 (16:54→23:26)
[2024-09-02] MEDS: STERILE WATER FOR INJECTION 10 ML IV ×2 (16:54→23:26)
[2024-09-02] MEDS: ROXICODONE 5 MG PO (19:26)
[2024-09-02] MEDS: ELIQUIS 2.5 MG PO (20:27)
[2024-09-02] MEDS: TYLENOL 650 MG PO (23:26)
[2024-09-03 03:35] VITALS: BP 122/63
[2024-09-03] MEDS: TYLENOL 650 MG PO ×2 (05:33→22:07)
[2024-09-03] MEDS: STERILE WATER FOR INJECTION 10 ML IV ×3 (05:54→17:39)
[2024-09-03] MEDS: MERREM 500 MG IV ×2 (05:54→13:12)
[2024-09-03 06:00] VITALS: BMI 23.8
--- NOTE | 2024-09-03 06:15 | DOWNTIME ---
There was a [employer] Senior [employer] Technician Downtime on 09/03/2024 from 0100 to 09/03/2024 at 0350. Downtime documentation of patient's care, including medication administrations, has been reconciled in the electronic record per guidelines. Refer to the
patient's paper chart under the miscellaneous tab to see printed paper medication records and downtime forms.
[2024-09-03 07:32] VITALS: BP 124/66
[2024-09-03] MEDS: ROXICODONE 5 MG PO ×3 (07:36→22:08)
[2024-09-03] MEDS: ELIQUIS 2.5 MG PO ×2 (07:37→19:53)
[2024-09-03] MEDS: PROSCAR 5 MG PO (07:37)
[2024-09-03] MEDS: PACERONE 200 MG PO (07:37)
[2024-09-03 08:42] LABS: Hematocrit 29.6 % (39.0-52.0); Hemoglobin 9.5 g/dL (13.0-18.0); Mean Corp Hgb Conc. 32.1 g/dL (33.0-37.0); Mean Corpuscular Volume 96.7 fL (80.0-94.0); Mean Platelet Volume 9.9 fL (7.4-10.4); Platelet Count 195 10^3/uL (130-400); Red Blood Cell Count 3.06 10^6/uL (4.70-6.10); Red Cell Dist. Width 14.5 % (11.5-14.5)
--- NOTE | 2024-09-03 09:38 | W.PN.HOSP.TC ---
Addendum entered and electronically signed by Smooth Baig MD 09/03/24 22:06:
Attending Addendum-
I saw and evaluated the patient. I reviewed the resident�s note and agree with findings and plan as documented in the resident�s note. Sub: Complains of pain in right hip and leg and drainage from wound. Unable to put weight on RLE. Denies fevers
chills. Full 12 point ROS reviewed and negative except as documented Exam: Vitals reviewed in chart GEN-NAD heart RRR lungs clear abd soft LE Right hip incision draining pus with surrounding redness and warmth b/l LE no edema
Plan:
# Right Hip Wound with associated cellulitis
- POA
- h/o b/l hip arthroplasty 'a long time ago'
- was probed to bone
- wound cx sent - await sensi
- c/s ID- appreciate input
- c/s ortho
- agree with change from meropenem to cefepime/flagyl day # 1
- check RT hip MRI w w/o r/o osteo
- follow crp
# Leukocytosis
- likely infectious
- cont to rend
# Paroxysmal A fib
- cont eliquis and amiodarone
# BPH - cont finasteride
DVTp- Eliquis
CODE- full will revisit
Dispo from [facility]
Time spent coordinating care, review of plan of care with resident, personally reviewed records in EMR, med rec, consults, notes, labs, radiology, d/w nursing � 62 mins
Original Note:
Today's Communication/Plan
-
Switched to cefepime/Flagyl
MRI of right hip with and without contrast
Oxycodone and morphine for pain management
Consulted orthopedics
Avi
Assessment / Plan
Assessment / Plan
83yo M coming from [facility] with ongoing wound to lateral aspect of his right hip from earlier this month following a fall event, presented to the ED with severe right hip/groin pain, making it difficult to bear weight on the right hip.
CT Pelvis W/o Iv Contrast (09/02)
- Bilateral hip arthroplasties in anatomic position with marked beam hardening artifact.
- No gross recent cortical fracture about the bony pelvis although cannot be entirely excluded on the basis of this study.
Chronic conditions prior to admission
Paroxysmal A-fib
BPH
Bilateral hip arthroplasties
Left knee surgery
Allergy history
Allergic to penicillin (verified)
Assessment and plan
#Right hip pain
-preliminary right hip wound culture revealed few gram-negative bacilli of 2 morphotypes
-Meropenem started in ED
-Appreciate ID-switched to cefepime/metronidazole
-MRI with and without contrast to r/o osteomyelitis
-Oxycodone 5 and morphine 1 mg every 6 hours for pain management
-PureWick
-Consulted orthopedics-no further recommendations at this time
# History of BPH
Continue finasteride
# History of A-fib
Continue Eliquis 2.5-will need to adjust dose once patient is discharged
Continue amiodarone
Anticipated Discharge: > 48 hours
Subjective/Interval History
-
Date of Service: September 03, 2024
Patient mentions he has not been able to get out of bed and bear weight on his right hip because of severe pain. Denies fevers/chills.
Objective Data
-
Labs:
Laboratory Results
09/03/24
07:56
WBC 16.0 H
Hgb 9.5 L
Hct 29.6 L
Plt Count 195 D
Sodium Pending
Potassium Pending
Chloride Pending
Carbon Dioxide Pending
BUN Pending
Creatinine Pending
Glucose Pending
Calcium Pending
Vital Signs:
Vital Signs
Temp Pulse Resp BP Pulse Ox
98.6 F 58 18 124/66 95
09/03/24 07:32 09/03/24 07:32 09/03/24 07:32 09/03/24 07:37 09/03/24 07:32
I&O
09/02/24 09/03/24 09/04/24
06:59 06:59 06:59
Intake Total 720 / 720
Output Total 650 / 650
Balance 70 / 70
Review of Systems
-
History Source: Patient
All other systems: Reviewed and negative
Constitutional: Reports Other (Right groin pain)
Physical Exam
-
General: Well Developed and Pain
HEENT: Normocephalic, Moist Mucous Membranes and Anicteric
Respiratory: Clear to Auscultation
Cardiac: Regular Rhythm and S1/S2
GI: Soft, Nontender, Nondistended and Normal Bowel Sounds
Musculoskeletal: No Clubbing, No Cyanosis and No Edema
Skin: Warm, Dry and Other (Purulent deep right hip wound 2x2, probed 6.5 cm deep in the posterior lateral direction to firm tissue)
Neuro: Awake, Alert, Oriented and AO x 3
[2024-09-03 11:04] VITALS: BP 131/69
[2024-09-03 11:18] LABS: Blood Urea Nitrogen 22 mg/dl (9-20); Carbon Dioxide 26 mmol/L (22-30); Chloride 102 mmol/L (98-107); Estimated Creatinine Clearance 88 ml/min; Glucose 63 mg/dl (70-99); Potassium 4.1 mmol/L (3.5-5.1); Sodium 136 mmol/L (135-145); eGFR > 60.00
--- NOTE | 2024-09-03 14:34 | CM ---
Addendum entered by Keerthi Aguero 09/03/24 14:41:
[facility]
[phone]

Original Note:
product manager e commerce reviewed patient's chart and met with patient and [facility], patient is independent with adl's and uses a cane with ambulation, patient drives, patient is currently receiving services
from [facility] visiting [facility].
PCP: Dr Faith Sigala
Pharmacy: [facility].
Plan; Home with [facility].
[2024-09-03 15:29] VITALS: BP 155/92
--- NOTE | 2024-09-03 15:47 | CON.ID ---
Consultation
-
Date/Time Consultation Requested: 09/02/24 22:25
Date/Time Consultation Performed: 09/03/24 15:48
Requesting Provider: Bianca OROZCO
Performing Provider: Dr Salvador
Reason for Consultation: deep wound ( 2cm with probe) to lateral aspect of his right hip with foul
Chief Complaint / Past History
Chief Complaint
Rt Hip pain
History of Present Illness
Mr Fall is an 83 year old male with bilateral hip arthroplasties, afib on eliquis who has had a chronic wound on the left hip since about March 2024, following with [facility]. He had a knee replacement on the CL side and favored
laying on this area. The wound has had tunneling for some time. About a month ago he noted an odor which dealer sales manager described to him as dried blood. Then 08/10 he felt dizzy when going from lying down to sitting, fell onto the hip and had
bleeding from the wound and he described it 'opening up further.' He has noticed purulent drainage since then. No fevers or chills. Has continued to follow up with wound care. Then two days ago he woke up and it was acutely more painful - he
wasnt able to bear weight or stand and he decided to come here.
Did require follow up with wound care in 2020 with 3 weeks of treatment for a left leg traumatic wound
Since arrival here no fever, bp stable, wbc initially 12 today 16, hgb 9.5, plt 195, L shift is noted on arrival, eos are present, cr 0.7, 09/[address]: bilateral arthroplasties, no cortical fracture, no collections, a wound culrue was obtained
09/02/24 and has grown gram negative rods, patient is currently on meropenem, ID is consulted for assistance with management.
Past History
Additional Past Medical History:
a fib
diverticulosis
Additional Past Surgical History:
bilateral hip arthroplasties
Allergy History:
Penicillins Allergy (Verified 08/10/24 10:13)
Rash
Medications Reviewed: Yes
Social History
Tobacco: Non-Smoker
Alcohol: None
Personal:
Family History
Family History: Not Pertinent
Review of Systems
Review of Systems
General: Negative Fever or Chills
All systems: All other systems were reviewed and were negative
Vital Signs
Temp Pulse Resp BP Pulse Ox
98.9 F 62 18 155/92 97
09/03/24 15:29 09/03/24 15:29 09/03/24 15:29 09/03/24 15:29 09/03/24 15:29
Physical Exam
Physical Exam
Constitutional: No Acute Distress
Cardiovascular: Regular Rate and S1/S2; Negative Murmur or Rub
Pulmonary: Clear and Symmetric; Negative Wheezes, Rales or Rhonchi
Gastrointestinal: Soft, Non Tender, Non Distended and Normal Bowel Sounds
Skin: Warm and Dry; Negative Rash or Jaundice
Wound: Other (probed 6.5 cm deep in the posterior lateral direction to firm tissue)
Lab / Diagnostic Study Results
09/03/24 07:56
09/03/24 07:56
Abs Immat Gran (auto) 0.1 10^3/uL (0-0.05) H 09/02/24 10:05
Absolute Neuts (auto) 10.8 10^3/uL (1.4-6.5) H 09/02/24 10:05
Absolute Lymphs (auto) 0.5 10^3/uL (1.2-3.4) L 09/02/24 10:05
Absolute Monos (auto) 0.8 10^3/uL (0.1-0.6) H 09/02/24 10:05
Absolute Basos (auto) 0.0 10^3/uL (0-0.2) 09/02/24 10:05
Immature Gran % 0.5 % (0-0.5) 09/02/24 10:05
Neutrophils % 86.2 % (42.2-75.2) H 09/02/24 10:05
Lymphocytes % 3.9 % (20.5-51.1) L 09/02/24 10:05
Monocytes % 6.6 % (1.7-9.3) 09/02/24 10:05
Eosinophils % 2.5 % (0-6) 09/02/24 10:05
Basophils % 0.3 % (0-2) 09/02/24 10:05
Microbiology Results
Micro:
09/02/24 14:06 Wound Culture - Preliminary
Hip - Right Gram negative bacilli
Gram Stain - Preliminary
09/02/24 20:44 MRSA Screen - Pending
Nose
Assessment / Plan
Subacute L hip wound with cellulitis
L hip replacement
History of poor wound healing requiring subacute wound care
Reported allergy to penicillin - rash
- wound probes 6.5 cm deep in the posterior lateral direction to firm tissue
- wound culture with few GNR
- anaerobic culture obtained
- MRI with and without contrast; wound probes much deeps and with more purulence that I would expect with CT findings; patient does have underlying prosthetic hip
- switched to cefepime/metronidazole; suspect he will tolerate cephalosporins, patient has a remote history of citrobacter/proteus colonization and is from [facility] - further deescalation as able when cultures result
- follow clinically
[2024-09-03] MEDS: MAXIPIME 2000 MG IV (17:38)
[2024-09-03 19:10] VITALS: BP 136/64
[2024-09-03] MEDS: MORPHINE SULFATE 1 MG IV (19:49)
[2024-09-03 20:55] LABS: Urine Albumin Trace (Neg - Trace); Urine Bilirubin Negative (Negative); Urine Character Clear (Clear); Urine Color Yellow; Urine Glucose Negative (Negative); Urine Ketone Negative (Negative); Urine Leukocyte Negative (Negative); Urine Nitrite Negative (Negative); Urine Occult Blood 3+ (Negative); Urine Specific Gravity 1.015 (<1.030); Urine Urobilinogen Negative (Neg - 1+); Urine pH 6.5 (5.0-9.0)
[2024-09-03 21:00] LABS: Urine Squamous Cell 0-2 /LPF (Few)
[2024-09-03 21:01] LABS: Urine Bacteria Few (Negative); Urine Red Blood Cell 26-30 /HPF (0-2); Urine White Cell 0-2 /HPF (0-5)
[2024-09-03 23:09] VITALS: BP 143/76
[2024-09-03] MEDS: FLAGYL 500 MG PO (23:53)
[2024-09-04] MEDS: MAXIPIME 2000 MG IV ×3 (02:35→17:40)
[2024-09-04] MEDS: STERILE WATER FOR INJECTION 10 ML IV ×3 (02:35→17:40)
[2024-09-04 03:05] VITALS: BP 160/82
[2024-09-04] MEDS: ROXICODONE 5 MG PO ×3 (05:23→17:40)
[2024-09-04 07:23] VITALS: BP 140/77
[2024-09-04 07:54] LABS: % Basophils 0.2 % (0-2); % Eosinophils 0.4 % (0-6); % Immature Granulocytes 0.6 % (0-0.5); % Lymphocytes 3.1 % (20.5-51.1); % Monocytes 6.1 % (1.7-9.3); % Neutrophils 89.6 % (42.2-75.2); Absolute Eosinophils 0.1 10^3/uL (0-0.7); Absolute Immature Granulocytes 0.1 10^3/uL (0-0.05); Absolute Lymphocytes 0.4 10^3/uL (1.2-3.4); Absolute Monocytes 0.9 10^3/uL (0.1-0.6); Absolute Neutrophils 12.6 10^3/uL (1.4-6.5); Hematocrit 32.6 % (39.0-52.0); Hemoglobin 10.4 g/dL (13.0-18.0); Mean Corp Hgb Conc. 31.9 g/dL (33.0-37.0); Mean Corpuscular Hgb 30.8 pg (27.0-31.0); Mean Corpuscular Volume 96.4 fL (80.0-94.0); Mean Platelet Volume 10.1 fL (7.4-10.4); Nucleated Red Blood Cells % 0 % (-); Platelet Count 208 10^3/uL (130-400); Red Blood Cell Count 3.38 10^6/uL (4.70-6.10); Red Cell Dist. Width 14.4 % (11.5-14.5)
--- NOTE | 2024-09-04 08:53 | CON.ORTHO ---
Consultation
-
Date/Time Consultation Requested: 03SEP2024 16:48
Date/Time Consultation Performed: 04SEP2024 08:05
Requesting Provider: Rylee Rutherford
Performing Provider: Armin Bauer
Reason for Consultation: Right hip wound and pain, rule out PJI
Consultation - Orthopedics
History
Mr Fall is a 83M with three days of right hip pain and inability to ambulate. He underwent right total hip arthroplasty approximately twenty years ago at [facility] and does not remember the name of the surgeon. He has a chronic
wound on the lateral aspect of his right greater trochanter and wound care has been seeing him and managing this. He did have a fall at home this month, as diagnosed with a hematoma, and returned home without intervention. He states the wound has
been healing over the past few months, until two days prior to presentation, when he noticed increased pain and difficulty when ambulating to the bathroom. This was accompanied by drainage from the wound. He denies recent injury or trauma. He states
his pain has increased and he cannot ambulate or bear weight on the RLE. He has pain in his groin with motion of the right hip. He has been admitted and is receiving IV antibiotics, Cefepime and Flagyl, with infectious disease input. Wound culture
was positive for gram negative bacili and the wound probes approximately two centimeters, likely to the femur. CT was performed and was negative for fracture, but due to metal artifact it is difficult to assess for occult fracture, sinus tract, or
fluid collection. MRI of the right hip has been ordered, awaiting study results. He states his sensation is intact, denies fevers, chills, night sweats, or other systemic symptom of infection.
-wound noted on lateral aspect of hip with purulence but no expressible fluid
-no surrounding erythema or ecchymosis
-pain with log roll right hip
-unable to perform straight leg raise due to pain; pain with passive hip flexion, ER, IR
-able to engage quadriceps muscle
-no pain with knee ROM
-palpable pulses and brisk capillary refill distally
-sensation intact in all dermatomes
- 5/5 strength distal to knee
Allergies / Home Medications
Allergy/AdvReac Type Severity Reaction Status Date / Time
Penicillins Allergy Rash Verified 09/03/24 16:24
�Medication �Instructions �Recorded
alfuzosin 10 mg tablet,extended 10 mg PO DAILY Urinary Issue 04/20/22
release 24 hr
amiodarone 200 mg tablet 200 mg PO DAILY AFIB 04/20/22
apixaban 2.5 mg tablet (Eliquis) 2.5 mg PO BID Blood Clot 04/20/22
Prevention/Tx
finasteride 5 mg tablet 5 mg PO DAILY Urinary Issue 04/20/22
omega 2-hni-ktz-fish oil 1,000 mg 1 cap PO DAILY Supplement 04/20/22
(120 mg-180 mg) capsule (Fish Oil)
saw palmetto 160 mg capsule 160 mg PO DAILY Supplement 04/20/22
therapeutic multivitamin 1 tab PO DAILY Supplement 04/20/22
turmeric 400 mg capsule 400 mg PO DAILY Supplement 04/20/22
acetaminophen 325 mg tablet 650 mg PO BIDPRN PRN mild pain 09/02/24
(Tylenol)
oxycodone 5 mg tablet 5 mg PO Q6HPRN PRN severe Pain 09/02/24
tolterodine 1 mg tablet 1 mg PO DAILY Urinary Issue 09/02/24
tramadol 50 mg tablet 50 mg PO BIDPRN PRN moderate pains 09/02/24
Vital Signs / Lab Results
Temp Pulse Resp BP Pulse Ox
98.5 F 68 18 140/77 95
09/04/24 07:23 09/04/24 07:23 09/04/24 07:23 09/04/24 07:23 09/04/24 07:23
09/04/24 06:51
Assessment / Plan
Mr Fall is an 83M with concern for right hip periprosthetic infection
-continue antibiotics as per primary, ID
-MRI right hip to assess for osteomyelitis
-IR image guided aspiration of the right hip joint for culture to assess for prosthetic joint infection
-If hip aspiration culture positive, patient will need explant and antibiotic spacer in right hip
-PT for ambulation, weight bearing as tolerated
-Orthopaedics to follow
--- NOTE | 2024-09-04 09:05 | W.PN.HOSP.TC ---
Addendum entered and electronically signed by Smooth aBig MD 09/04/24 21:46:
Attending Addendum-
I saw and evaluated the patient. I reviewed the resident�s note and agree with findings and plan as documented in the resident�s note. Sub: continues to have pain right hip with drainage from wound. Unable to put weight on RLE. Denies fevers chills.
Full 12 point ROS reviewed and negative except as documented Exam: Vitals reviewed in chart GEN-NAD heart RRR lungs clear abd soft LE Right hip wound draining pus with surrounding mild redness b/l LE no edema
Plan:
# Right Hip Wound with abscess
- POA
- h/o b/l hip arthroplasty 20 years ago
- wound cx - e coli and Morganella- sensi resulted also contains diphtheroids and enterococcus
- anaerobic cx sent 09/04
- ID on board- appreciate input
- ortho input appreciated
- meropenem->cefepime/Flagyl day # 2
- RT hip MRI w w/o- Right lateral hip soft tissue wound extending towards the greater femoral trochanter. no acute osteomyelitis. 4.1 cm loculated fluid collection posterior to the right hip
- due to location abscess may be difficult for IR drainage- c/s for eval
- follow crp 195
# Leukocytosis
- decreasing
- cont to trend
# Paroxysmal A fib
- cont eliquis and amiodarone
- hold eliquis for procedure
# BPH - cont finasteride
DVTp- Eliquis
CODE- full will revisit
Dispo from [facility]
Time spent coordinating care, review of plan of care with resident, personally reviewed records in EMR, med rec, consults, notes, labs, radiology, d/w nursing � 58 mins
Original Note:
Today's Communication/Plan
-
Continue cefepime/Flagyl per ID
IR consult for aspiration of R hip loculated fluid collection
MRI done-no signs of osteomyelitis
Hip [id number]
Assessment / Plan
Assessment / Plan
83yo M coming from [facility] with ongoing wound to lateral aspect of his right hip from earlier this month following a fall event, presented to the ED with severe right hip/groin pain, making it difficult to bear weight on the right hip.
CT Pelvis W/o Iv Contrast (09/02)
- Bilateral hip arthroplasties in anatomic position with marked beam hardening artifact.
- No gross recent cortical fracture about the bony pelvis although cannot be entirely excluded on the basis of this study.
Chronic conditions prior to admission
Paroxysmal A-fib
BPH
Bilateral hip arthroplasties
Left knee surgery
Allergy history
Allergic to penicillin (verified)
Assessment and plan
#Right hip pain
-Right hip wound culture (obtained in the ED) positive for E. coli, Morganella, diphtheroid, enterococci
-Repeat ulcer culture pending
-Meropenem started in ED- ID switched to cefepime/metronidazole on 09/03
-MRI with and without contrast- no signal changes to indicate acute osteomyelitis-No hip joint effusion or synovitis-4.1 cm loculated fluid collection posterior to the right hip for which an infected collection cannot be excluded.
-Oxycodone 5 and morphine 1 mg every 6 hours for pain management
-Consulted orthopedics -recommend IR image guided aspiration of the right hip joint for culture to assess for prosthetic joint infection-If hip aspiration culture positive, patient will need explant and antibiotic spacer in right hip
-Hip x-ray (09/04): there is no fracture or dislocation, bony destruction, or erosive change
-Activity limited due to hip pain - PureWick for urine control
# History of BPH
Continue finasteride
# History of A-fib
Continue Eliquis 2.5-will need to adjust dose once patient is discharged
Continue amiodarone
Anticipated Discharge: > 48 hours
Subjective/Interval History
-
Date of Service: September 04, 2024
Patient complains of right hip pain and still not being able to bear weight. No other complaints.
Objective Data
-
Labs:
Laboratory Results
09/04/24
06:51
WBC 14.0 H
Hgb 10.4 L
Hct 32.6 L
Plt Count 208
Sodium Pending
Potassium Pending
Chloride Pending
Carbon Dioxide Pending
BUN Pending
Creatinine Pending
Glucose Pending
Calcium Pending
Vital Signs:
Vital Signs
Temp Pulse Resp BP Pulse Ox
98.5 F 68 18 140/77 95
09/04/24 07:23 09/04/24 07:23 09/04/24 07:23 09/04/24 07:23 09/04/24 07:23
I&O
09/03/24 09/04/24 09/05/24
06:59 06:59 06:59
Intake Total 720 / 720 600 / 600
Output Total 650 / 650 1000 / 1000
Balance 70 / 70 -400 / -400
Review of Systems
-
History Source: Patient
All other systems: Reviewed and negative
Constitutional: Reports Other (Right hip pain)
Physical Exam
-
General: Well Developed and No Apparent Distress
HEENT: Normocephalic, Moist Mucous Membranes and Anicteric
Respiratory: Clear to Auscultation
Cardiac: Regular Rhythm and S1/S2
GI: Soft, Nontender, Nondistended and Normal Bowel Sounds
Musculoskeletal: No Clubbing
Skin: Other (Nontender purulent ulcer on lateral aspect of right hip)
Neuro: Awake, Alert, Oriented, No Motor Deficits, No Sensory Deficits and Other (pain with right hip flexion)
Psych: Calm
[2024-09-04] MEDS: FLAGYL 500 MG PO ×3 (09:38→23:14)
[2024-09-04] MEDS: ELIQUIS 2.5 MG PO ×2 (09:38→20:24)
[2024-09-04] MEDS: PACERONE 200 MG PO (09:38)
[2024-09-04] MEDS: PROSCAR 5 MG PO (09:39)
[2024-09-04 10:07] LABS: Blood Urea Nitrogen 23 mg/dl (9-20); Calcium 8.3 mg/dl (8.4-10.2); Carbon Dioxide 25 mmol/L (22-30); Chloride 102 mmol/L (98-107); Estimated Creatinine Clearance 88 ml/min; Glucose 83 mg/dl (70-99); Potassium 4.3 mmol/L (3.5-5.1); Sodium 137 mmol/L (135-145); eGFR > 60.00
[2024-09-04 11:49] VITALS: BP 147/77
[2024-09-04 15:07] VITALS: BP 132/69
--- NOTE | 2024-09-04 17:21 | W.PN.ID1 ---
Date of Service
Date of Service: September 04, 2024
Today's Communication
- MRI with and without contrast; with probable abscess posterior to the hip, no effusion of the hip joint, favor open drainage with surgery if feasible
- c/w cefepime/metronidazole
Assessment / Plan
Subacute L hip wound with cellulitis
L hip replacement
History of poor wound healing requiring subacute wound care
Reported allergy to penicillin - rash
- wound probes 6.5 cm deep in the posterior lateral direction to firm tissue
- wound culture with few GNR
- anaerobic culture obtained yesterday 09/03 and given to his RN, however order was not completed - recultured today
- MRI with and without contrast; with probable abscess posterior to the hip, no effusion of the hip joint, favor open drainage with surgery if feasible
- c/w cefepime/metronidazole
- follow clinically
Chief Complaint
-: Other (hip abscess, chronic wound)
Subjective / Review of Systems
afebrile
bp stable
I gave anaerobic culture to RN yesterday, however not completed. Jaida. Explained to patient.
reviewed MRI findings with patient
Vital Signs / Physical Exam
Vital Signs
Vital Signs
Temp Pulse Resp BP Pulse Ox
98.6 F 68 18 132/69 92
09/04/24 15:07 09/04/24 15:07 09/04/24 15:07 09/04/24 15:07 09/04/24 15:07
Physical Exam
Constitutional: No Acute Distress
Cardiovascular: Regular Rate and S1/S2; Negative Murmur or Rub
Pulmonary: Clear and Symmetric; Negative Wheezes or Rales
Gastrointestinal: Soft, Non Tender, Non Distended and Normal Bowel Sounds
Skin: Warm and Dry; Negative Rash or Jaundice
Wound: Other (continued purulent drainage)
Neurological: Awake
Objective Data
Lab Data
Lab Results
09/04/24 06:51
09/04/24 06:51
Estimated Creat Clear 88 ml/min 09/04/24 06:51
Total Bilirubin 0.4 mg/dl (0.2-1.3) 09/02/24 10:05
AST 21 U/L (17-59) 09/02/24 10:05
ALT 12 U/L (0-50) 09/02/24 10:05
Alkaline Phosphatase 84 U/L (38-126) 09/02/24 10:05
C-Reactive Protein 195.80 mg/L (0.0-10.00) H 09/04/24 06:51
Most recent labs reviewed.
Micro Results:
09/04/24 17:14 Anaerobic Culture - Pending
Abscess
09/03/24 16:45 Wound Culture - Pending
Ulcer Gram Stain - Preliminary
09/02/24 14:06 Wound Culture - Preliminary
Hip - Right Escherichia coli
Morganella morganii
Enterococcus species
Diptheroids
Gram Stain - Preliminary
09/02/24 20:44 MRSA Screen - Final
Nose No Methicillin Resistant Staphylococcus aureus isolated.
Care Review
Plan reviewed with: Nurse (new anaerobic culture given to todays SANJUANITA Altman)
[2024-09-04 19:28] VITALS: BP 145/77
[2024-09-04 23:09] VITALS: BP 144/80
[2024-09-04] MEDS: MORPHINE SULFATE 1 MG IV (23:15)
[2024-09-05] VITALS (9 sets, daily range): BP systolic 57–157; BP diastolic 72–82; BMI 23.4
[2024-09-05] MEDS: MAXIPIME 2000 MG IV ×3 (02:18→19:17)
[2024-09-05] MEDS: STERILE WATER FOR INJECTION 10 ML IV ×3 (02:18→19:17)
[2024-09-05] MEDS: ROXICODONE 5 MG PO ×3 (02:22→20:20)
--- NOTE | 2024-09-05 08:22 | W.PN.UPDATE ---
Update Note
Progress Note Update
Patient seen and evaluated by Orthopedic surgery this morning. He endorses continued pain to his right hip. He denies any constitutional symptoms. Patient underwent MRI of the right hip yesterday.
MRI Impression: Right lateral hip soft tissue wound extends towards the greater femoral trochanter. However, no signal changes to indicate acute osteomyelitis. No hip joint effusion or synovitis within the limitations of metallic susceptibility
artifact from total hip arthroplasty hardware. 4.1 cm loculated fluid collection posterior to the right hip for which an infection collection cannot be excluded.
Physical examination reveals a wound over the lateral right hip with some purulence noted but no expressible fluid. No surrounding erythema or ecchymosis. There is pain with logroll of the right hip.
Case was discussed with Dr. Bauer this morning. Recommending IR guided aspiration of both the fluid collection as well as the right hip joint. This should be sent for culture and sensitivity, Gram stain, and Cell count. At this time, patient
may be weightbearing as tolerated to his right lower extremity with use of assistive device. Orthopedics will continue to follow along. Further treatment recommendations pending aspiration results.
[2024-09-05] MEDS: PACERONE 200 MG PO (08:55)
[2024-09-05] MEDS: ELIQUIS 2.5 MG PO ×2 (08:56→19:16)
[2024-09-05] MEDS: FLAGYL 500 MG PO ×2 (08:56→16:36)
[2024-09-05] MEDS: PROSCAR 5 MG PO (08:56)
[2024-09-05 09:15] LABS: Hematocrit 28.3 % (39.0-52.0); Hemoglobin 9.9 g/dL (13.0-18.0); Mean Corpuscular Hgb 31.9 pg (27.0-31.0); Mean Corpuscular Volume 91.3 fL (80.0-94.0); Mean Platelet Volume 10.3 fL (7.4-10.4); Platelet Count 187 10^3/uL (130-400); White Blood Cell Count 8.8 10^3/uL (4.8-10.8)
[2024-09-05 09:45] LABS: Blood Urea Nitrogen 20 mg/dl (9-20); Calcium 7.8 mg/dl (8.4-10.2); Carbon Dioxide 26 mmol/L (22-30); Chloride 101 mmol/L (98-107); Estimated Creatinine Clearance 88 ml/min; Glucose 83 mg/dl (70-99); Potassium 3.5 mmol/L (3.5-5.1); Sodium 133 mmol/L (135-145); eGFR > 60.00
--- NOTE | 2024-09-05 10:24 | W.PN.HOSP.TC ---
Addendum entered and electronically signed by Smooth Baig MD 09/05/24 23:08:
Attending Addendum-
I saw and evaluated the patient. I reviewed the resident�s note and agree with findings and plan as documented in the resident�s note. Sub: seen post aspiration. continues to have pain right hip with drainage from wound. Unable to bear weight on
RLE. Denies fevers chills. Full 12 point ROS reviewed and negative except as documented Exam: Vitals reviewed in chart GEN-NAD heart RRR lungs clear abd soft LE Right hip wound draining pus with surrounding mild redness b/l LE no edema
Plan:
# Right Hip Wound with abscess
- h/o b/l hip arthroplasty 20 years ago
- wound cx - e coli enterococcus and Morganella- sens to cefepime, also contains diphtheroids
- anaerobic cx sent 09/04- P
- ID on board- appreciate input
- ortho input appreciated
- meropenem->cefepime/Flagyl day # 3
- RT hip MRI w w/o- Right lateral hip soft tissue wound extending towards the greater femoral trochanter. no acute osteomyelitis. 4.1 cm loculated fluid collection posterior to the right hip
- S/P IR aspiration on 09/05- Fluoro guided aspiration R prosthetic hip, no fluid return. Lavage performed with preservative free saline, ~2cc sample sent for micro.
- follow crp- 195
# Leukocytosis
- resolved
- cont to trend
# Hyponatremia
- mild
- cont to trend
# Paroxysmal A fib
- increase eliquis to appropriate dosing
- cont amiodarone
# BPH - cont finasteride
DVTp- Eliquis
CODE- full
Dispo from [facility]
Time spent coordinating care, review of plan of care with resident, personally reviewed records in EMR, med rec, consults, notes, labs, radiology, d/w nursing IR � 61 mins
Original Note:
Today's Communication/Plan
-
aspiration of collection posterior to R hip + aspiration R prosthetic hip by IR today
Cont cefepime/flagyl
Encourage OOB activity
Rest of care as before
Assessment / Plan
Assessment / Plan
83yo M coming from [facility] with ongoing wound to lateral aspect of his right hip from earlier this month following a fall event, presented to the ED with severe right hip/groin pain, making it difficult to bear weight on the right hip.
CT Pelvis W/o Iv Contrast (09/02)
- Bilateral hip arthroplasties in anatomic position with marked beam hardening artifact.
- No gross recent cortical fracture about the bony pelvis although cannot be entirely excluded on the basis of this study.
Chronic conditions prior to admission
Paroxysmal A-fib
BPH
Bilateral hip arthroplasties
Left knee surgery
Allergy history
Allergic to penicillin (verified)
Assessment and plan
#Right hip pain
-Right hip wound culture (obtained in the ED) positive for E. coli, Morganella, diphtheroid, enterococci
-Repeat anaerobic ulcer culture pending
-Meropenem started in ED- ID switched to cefepime/metronidazole on 09/03
-MRI with and without contrast- no signal changes to indicate acute osteomyelitis-No hip joint effusion or synovitis-4.1 cm loculated fluid collection posterior to the right hip for which an infected collection cannot be excluded.
-Oxycodone 5 and morphine 1 mg every 6 hours for pain management
-Consulted orthopedics -recommend IR image guided aspiration of the right hip joint for culture to assess for prosthetic joint infection-If hip aspiration culture positive, patient will need explant and antibiotic spacer in right hip
-IR to take patient for hip collection drainage and R hip joint aspiration today
-Hip x-ray (09/04): there is no fracture or dislocation, bony destruction, or erosive change
-Activity limited due to hip pain - PureWick
# History of BPH
Continue finasteride
# History of A-fib
Continue Eliquis 2.5-will need to adjust dose once patient is discharged
Continue amiodarone
Anticipated Discharge: Within 24 hours
Subjective/Interval History
-
Date of Service: September 05, 2024
Complains of right hip pain and not being able to bear weight on right side. Also, has back pain because of prolonged time in bed.
Objective Data
-
Labs:
Laboratory Results
09/05/24
07:27
WBC 8.8
Hgb 9.9 L
Hct 28.3 L
Plt Count 187
Sodium 133 L
Potassium 3.5
Chloride 101
Carbon Dioxide 26
BUN 20
Creatinine 0.7
Glucose 83
Calcium 7.8 L
Vital Signs:
Vital Signs
Temp Pulse Resp BP Pulse Ox
98.4 F 66 20 142/75 97
09/05/24 07:22 09/05/24 07:22 09/05/24 07:22 09/05/24 07:22 09/05/24 07:22
I&O
09/04/24 09/05/24 09/06/24
06:59 06:59 06:59
Intake Total 600 / 600 720 / 720
Output Total 1000 / 1000 1375 / 1375
Balance -400 / -400 -655 / -655
Review of Systems
-
History Source: Patient
All other systems: Reviewed and negative
Constitutional: Reports Other (Back pain + right hip pain)
Physical Exam
-
General: Well Developed and Conversant
HEENT: Normocephalic, Moist Mucous Membranes and Anicteric
Respiratory: Clear to Auscultation
Cardiac: Regular Rhythm and S1/S2
GI: Soft, Nontender, Nondistended and Normal Bowel Sounds
Musculoskeletal: No Clubbing, No Cyanosis, No Edema and Other (right hip purulent wound, no surronding erythema, not tender )
Skin: Warm and Dry
Neuro: Awake, Alert, Oriented and AO x 3
Psych: Calm
--- NOTE | 2024-09-05 10:40 | WOUNDNOTE ---
WO RN note: Patient admitted with R hip pain, fall. Patient lives with his and is current with and follows [facility]. He lives at [facility] living.
See H&P for complete history.
PMH: bilateral hip replacements, Knee replacement last March at [facility]. R hip stage 4 pressure injury.
Wound Location and type/assessment: Patient admitted with: R hip stage 4 to muscle or deeper pressure injury, pink with yellow fibrin that can be visualized. Wound tunnels 4-6cm proximally. Moderate yellow drainage. IR on consult to drain a R hip
abscess. Sacral stage 2 pressure injury vs MASD (appears more moisture related).
Appetite: poor.
Pressure redistribution devices in place: [employer] Accumax. Patient cannot turn self in bed. RN Walker agreeable to Waffle air overlay.
Plan: R hip dressing changed. Waffle air overlay applied and patient turned to L semi side lying position with help from JOHN Mcdonald and RN Walker. Heels off bed with air chair cushion.
Will confirm orders with hospitalist resident Dr. Mckee and discussed with RN Ander.
Care plan to be updated and will follow as needed.
Note to case management of equipment requested for discharge: Hospital bed with air mattress.
Patient to follow up at wound care center upon discharge.
--- NOTE | 2024-09-05 10:41 | WOUNDNOTE ---
WO RN note: Patient admitted with R hip pain, fall. Patient lives with his and is current with and follows [facility]. He lives at [facility] living.
See H&P for complete history.
PMH: bilateral hip replacements, Knee replacement last March at [facility]. R hip stage 4 pressure injury.
Wound Location and type/assessment: Patient admitted with: R hip stage 4 to muscle or deeper pressure injury, pink with yellow fibrin that can be visualized. Wound tunnels 4-6cm proximally. Moderate yellow drainage. IR on consult to drain a R hip
abscess.
Appetite: poor.
Pressure redistribution devices in place: [employer] Accumax. Patient cannot turn self in bed. RN Walker agreeable to Waffle air overlay.
Plan: R hip dressing changed. Waffle air overlay applied and patient turned to L semi side lying position with help from JOHN Mcdonald and RN Walker. Heels off bed with air chair cushion.
Will confirm orders with hospitalist resident Dr. Mckee and discussed with RN Ander.
Care plan to be updated and will follow as needed.
Note to case management of equipment requested for discharge: Hospital bed with air mattress.
Patient to follow up at wound care center upon discharge.
--- NOTE | 2024-09-05 11:11 | W.PN.ID1 ---
Date of Service
Date of Service: September 05, 2024
Today's Communication
- MRI with and without contrast; with probable abscess posterior to the hip, no effusion of the hip joint; s/p IR guided drainage of abscess and joint - cultures sent
- c/w cefepime/metronidazole
- follow clinically
Assessment / Plan
Subacute L hip wound with cellulitis
L hip replacement
History of poor wound healing requiring subacute wound care
Reported allergy to penicillin - rash
- wound probes 6.5 cm deep in the posterior lateral direction to firm tissue
- wound culture with few GNR, follow up culture
- anaerobic culture pending - received by lab
- MRI with and without contrast; with probable abscess posterior to the hip, no effusion of the hip joint; s/p IR guided drainage of abscess and joint - cultures sent
- c/w cefepime/metronidazole
- follow clinically
Chief Complaint
-: Other (hip abscess, chronic wound)
Subjective / Review of Systems
afebrile
bp stable
no events overnight
Vital Signs / Physical Exam
Vital Signs
Vital Signs
Temp Pulse Resp BP Pulse Ox
98.4 F 66 20 142/75 97
09/05/24 07:22 09/05/24 07:22 09/05/24 07:22 09/05/24 07:22 09/05/24 07:22
Physical Exam
Constitutional: No Acute Distress
Cardiovascular: Regular Rate and S1/S2; Negative Murmur or Rub
Pulmonary: Clear and Symmetric; Negative Wheezes or Rales
Gastrointestinal: Soft, Non Tender, Non Distended and Normal Bowel Sounds
Skin: Warm and Dry; Negative Rash or Jaundice
Wound: Other (dressing take down deferred - was just packed)
Objective Data
Lab Data
Lab Results
09/05/24 07:27
09/05/24 07:27
Estimated Creat Clear 88 ml/min 09/05/24 07:27
Total Bilirubin 0.4 mg/dl (0.2-1.3) 09/02/24 10:05
AST 21 U/L (17-59) 09/02/24 10:05
ALT 12 U/L (0-50) 09/02/24 10:05
Alkaline Phosphatase 84 U/L (38-126) 09/02/24 10:05
C-Reactive Protein 195.80 mg/L (0.0-10.00) H 09/04/24 06:51
Most recent labs reviewed.
leukocytosis resolved
Micro Results:
09/03/24 16:45 Wound Culture - Preliminary
Ulcer Gram Stain - Preliminary
09/04/24 17:14 Anaerobic Culture - Pending
Abscess
09/02/24 14:06 Wound Culture - Preliminary
Hip - Right Escherichia coli
Morganella morganii
Enterococcus species
Diptheroids
Gram Stain - Preliminary
09/02/24 20:44 MRSA Screen - Final
Nose No Methicillin Resistant Staphylococcus aureus isolated.
Care Review
Plan reviewed with: Physician (Dr Subramanian, Dr Bauer, Dr Mckee - IR plans)
--- NOTE | 2024-09-05 12:49 | W.PN.IRAD.PR ---
Procedure Note
-
US guided aspiration small collection posterior to R hip, return of 2cc bloody thick gelatinous fluid most suggestive of synovial fluid. Sent for micro.
Fluoro guided aspiration R prosthetic hip, no fluid return. Lavage performed with preservative free saline, ~2cc sample sent for micro.
--- NOTE | 2024-09-05 13:20 | WOUNDNOTE ---
[facility] RN Note: Confirmed R hip packing and that R hip wound is a pressure injury (present on admission) with Dr. Salvador. Confirmed wound care orders, air overlay or air mattress and heel relief measures with Dr. Mckee. Care plan and discharge
instructions updated. Will follow as needed.
--- NOTE | 2024-09-05 14:12 | WOUNDNOTE ---
Virgil Haro re: Recommend hospital bed with air mattress; patient has a stage 4 R hip pressure injury.
--- NOTE | 2024-09-05 14:52 | CM ---
business analyst project manager reviewed patient's chart and per patient progress with physical therapy patient is having difficulty due to pain, counseling case manager received an update from wound care nurse and she is recommending a hospital bed with air mattress due to
stage 4 right hip pressure.
business analyst project manager reached out and spoke with Mar at [facility] and provided counseling case managercustomer services manager information.
Plan; To assist with discharge planning will await recommendations from physical therapy.
[2024-09-05] MEDS: MORPHINE SULFATE 1 MG IV (22:33)
[2024-09-06] VITALS (8 sets, daily range): BP systolic 113–142; BP diastolic 70–78; BMI 23.3
[2024-09-06] MEDS: FLAGYL 500 MG PO ×3 (00:58→16:15)
[2024-09-06] MEDS: MAXIPIME 2000 MG IV ×3 (01:00→19:11)
[2024-09-06] MEDS: STERILE WATER FOR INJECTION 10 ML IV ×3 (01:00→19:12)
[2024-09-06] MEDS: MORPHINE SULFATE 1 MG IV (06:02)
[2024-09-06] MEDS: ROXICODONE 5 MG PO ×3 (06:34→19:48)
[2024-09-06 07:40] LABS: % Basophils 0.4 % (0-2); % Eosinophils 1.2 % (0-6); % Immature Granulocytes 0.3 % (0-0.5); % Lymphocytes 6.4 % (20.5-51.1); % Monocytes 12.8 % (1.7-9.3); % Neutrophils 78.9 % (42.2-75.2); Absolute Eosinophils 0.1 10^3/uL (0-0.7); Absolute Lymphocytes 0.5 10^3/uL (1.2-3.4); Absolute Monocytes 0.9 10^3/uL (0.1-0.6); Absolute Neutrophils 5.8 10^3/uL (1.4-6.5); Hematocrit 29.3 % (39.0-52.0); Hemoglobin 10.2 g/dL (13.0-18.0); Mean Corp Hgb Conc. 34.8 g/dL (33.0-37.0); Mean Corpuscular Hgb 31.5 pg (27.0-31.0); Mean Corpuscular Volume 90.4 fL (80.0-94.0); Mean Platelet Volume 9.9 fL (7.4-10.4); Nucleated Red Blood Cells % 0 % (-); Platelet Count 190 10^3/uL (130-400); Red Blood Cell Count 3.24 10^6/uL (4.70-6.10); Red Cell Dist. Width 13.9 % (11.5-14.5); White Blood Cell Count 7.3 10^3/uL (4.8-10.8)
[2024-09-06 08:20] LABS: Blood Urea Nitrogen 19 mg/dl (9-20); Calcium 7.9 mg/dl (8.4-10.2); Carbon Dioxide 25 mmol/L (22-30); Chloride 102 mmol/L (98-107); Estimated Creatinine Clearance 102 ml/min; Glucose 86 mg/dl (70-99); Potassium 3.5 mmol/L (3.5-5.1); Sodium 132 mmol/L (135-145); eGFR > 60.00
[2024-09-06] MEDS: PACERONE 200 MG PO (09:27)
[2024-09-06] MEDS: ELIQUIS 5 MG PO ×2 (09:28→19:12)
[2024-09-06] MEDS: PROSCAR 5 MG PO (09:29)
--- NOTE | 2024-09-06 11:43 | W.PN.HOSP.TC ---
Today's Communication/Plan
-
await IRAD drainage
Assessment / Plan
Assessment / Plan
83yo M coming from [facility] with ongoing wound to lateral aspect of his right hip from earlier this month following a fall event, presented to the ED with severe right hip/groin pain, making it difficult to bear weight on the right hip.
CT Pelvis W/o Iv Contrast (09/02)
- Bilateral hip arthroplasties in anatomic position with marked beam hardening artifact.
- No gross recent cortical fracture about the bony pelvis although cannot be entirely excluded on the basis of this study.
Chronic conditions prior to admission
Paroxysmal A-fib
BPH
Bilateral hip arthroplasties
Left knee surgery
Allergy history
Allergic to penicillin (verified)
Assessment and plan
#Right hip pain
-Right hip wound culture (obtained in the ED) positive for E. coli, Morganella, diphtheroid, enterococci
-Repeat anaerobic ulcer culture pending
-Meropenem started in ED- ID switched to cefepime/metronidazole on 09/03
-MRI with and without contrast- no signal changes to indicate acute osteomyelitis-No hip joint effusion or synovitis-4.1 cm loculated fluid collection posterior to the right hip for which an infected collection cannot be excluded.
-Oxycodone 5 and morphine 1 mg every 6 hours for pain management
-Consulted orthopedics -recommend IR image guided aspiration of the right hip joint for culture to assess for prosthetic joint infection-If hip aspiration culture positive, patient will need explant and antibiotic spacer in right hip
-underwent IRAD drainage 09/05
-Hip x-ray (09/04): there is no fracture or dislocation, bony destruction, or erosive change
-Activity limited due to hip pain - PureWick
# History of BPH
Continue finasteride
# History of A-fib
Continue Eliquis 2.5-will need to adjust dose once patient is discharged
Continue amiodarone
Await results of IRAD aspiration
Pt is a Full Code
Anticipated Discharge: > 48 hours
Subjective/Interval History
-
Date of Service: September 06, 2024
Awake,alert, conversant
Objective Data
-
Labs:
Laboratory Results
09/06/24
07:23
WBC 7.3
Hgb 10.2 L
Hct 29.3 L
Plt Count 190
Sodium 132 L
Potassium 3.5
Chloride 102
Carbon Dioxide 25
BUN 19
Creatinine 0.6 L
Glucose 86
Calcium 7.9 L
Vital Signs:
Vital Signs
Temp Pulse Resp BP Pulse Ox
98.2 F 59 16 135/70 94
09/06/24 07:15 09/06/24 07:15 09/06/24 07:15 09/06/24 07:15 09/06/24 07:15
I&O
09/05/24 09/06/24 09/07/24
06:59 06:59 06:59
Intake Total 720 / 720 720 / 720
Output Total 1375 / 1375 1150 / 1150
Balance -655 / -655 -430 / -430
Review of Systems
-
History Source: Patient and Coordinated Provider (SANJUANITA Worthington)
Constitutional: Denies Fever
EENT: Reports No Symptoms Reported
Respiratory: Reports No Symptoms
Cardiac: Reports No Symptoms
Abdomen/GI: Reports No Symptoms
Musculoskeletal: Reports Joint Pain (Rt hip pain)
Physical Exam
-
General: Well Developed, Well Nourished and No Apparent Distress
HEENT: Normocephalic, Atraumatic and Moist Mucous Membranes
Respiratory: Clear to Auscultation
Cardiac: Regular Rhythm and S1/S2
GI: Soft, Nontender, Nondistended and Normal Bowel Sounds
Musculoskeletal: No Clubbing, No Cyanosis, No Edema and Other (right hip purulent wound, no surronding erythema, not tender )
Skin: Warm and Dry
Neuro: Awake, Alert, Oriented and AO x 3
Psych: Calm
--- NOTE | 2024-09-06 11:56 | W.PN.UPDATE ---
Update Note
Progress Note Update
Patient seen and evaluated by Orthopedic surgery this morning. He endorses continued pain to his right hip/anterolateral thigh, however today reports improvement with ability to flex his hip with less discomfort. He denies any constitutional
symptoms.
Ulcer wound culture 09/03/2024 with few presumptive Morganella morganii, few Enterococcus faecalis, rare Escherichia coli, rare Diptheroids. Currently on Cefepime/Metronidazole per ID.
Patient underwent IR guided drainage of abscess and joint yesterday 09/05/2024.
Preliminary abscess culture without growth. Preliminary gram stain revealing many WBC, no organisms seen.
Preliminary fluid culture of right hip joint without growth after 18-24 hours. Preliminary gram stain revealing no WBC, no organisms seen.
Continue to follow cultures and clinical progression. Continue treatment per ID and primary teams. At this time, patient may be weightbearing as tolerated to his right lower extremity with use of assistive device. Orthopedics will continue to
follow.
[2024-09-07] MEDS: FLAGYL 500 MG PO ×2 (00:57→07:54)
[2024-09-07] MEDS: STERILE WATER FOR INJECTION 10 ML IV ×2 (00:59→10:57)
[2024-09-07] MEDS: MAXIPIME 2000 MG IV ×2 (00:59→10:57)
[2024-09-07 03:40] VITALS: BP 121/67
[2024-09-07 06:00] VITALS: BMI 22.7
[2024-09-07 07:35] VITALS: BP 138/74
[2024-09-07] MEDS: ROXICODONE 5 MG PO ×2 (07:53→22:15)
[2024-09-07] MEDS: ELIQUIS 5 MG PO ×2 (07:54→20:05)
[2024-09-07] MEDS: PACERONE 200 MG PO (07:55)
[2024-09-07] MEDS: PROSCAR 5 MG PO (07:56)
[2024-09-07 11:32] VITALS: BP 141/72
--- NOTE | 2024-09-07 12:12 | W.PN.UPDATE ---
Update Note
Progress Note Update
Patient seen and evaluated by Orthopedic surgery this afternoon. He endorses continued pain to his right hip/anterolateral thigh, however notes improvement with symptoms in comparison to date of admission. He denies any constitutional symptoms.
Ulcer wound culture 09/03/2024 with few presumptive Morganella morganii, few Enterococcus faecalis, rare Escherichia coli, rare Diptheroids. Currently on Cefepime/Metronidazole per ID.
Patient underwent IR guided drainage of abscess and joint yesterday 09/05/2024.
Preliminary abscess culture with rare presumptive Morganella morganii.
Preliminary fluid culture of right hip joint without growth after 48 hours. Preliminary gram stain revealing no WBC, no organisms seen.
Case discussed with Dr. Bauer today. At this time, we will continue to follow cultures and clinical progression. Continue treatment per ID and primary teams. Continue wound care. Patient may be weightbearing as tolerated to his right lower
extremity with use of assistive device. Orthopedics will continue to follow.
--- NOTE | 2024-09-07 12:34 | CM ---
Patient seen at bedside.
Discussed options of SNF as rec by PT
Spoke with him about [facility].
Patient would like to decide & follow up with CM tomorrow.
PLAN: PT rec SNF
--- NOTE | 2024-09-07 13:48 | W.PN.ID1 ---
Date of Service
Date of Service: September 07, 2024
Today's Communication
- trial of zosyn - suspect patient may well tolerate it, if there is a rash can treat with benadryl
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
- follow clinically
Assessment / Plan
Subacute L hip wound with cellulitis
L hip replacement
History of poor wound healing requiring subacute wound care
Reported allergy to penicillin - rash
- trial of zosyn - suspect patient may well tolerate it, if there is a rash can treat with benadryl
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
- follow clinically
Chief Complaint
-: Other (hip abscess, chronic wound)
Subjective / Review of Systems
afebrile
bp stable
tolerating current therapies
Vital Signs / Physical Exam
Vital Signs
Vital Signs
Temp Pulse Resp BP Pulse Ox
97.8 F 51 18 141/72 97
09/07/24 11:32 09/07/24 11:32 09/07/24 11:32 09/07/24 11:32 09/07/24 11:32
Physical Exam
Constitutional: No Acute Distress
Cardiovascular: Regular Rate and S1/S2; Negative Murmur or Rub
Pulmonary: Clear and Symmetric; Negative Wheezes or Rales
Gastrointestinal: Soft, Non Tender, Non Distended and Normal Bowel Sounds
Skin: Warm and Dry; Negative Rash or Jaundice
Objective Data
Lab Data
Lab Results
09/06/24 07:23
09/06/24 07:23
Estimated Creat Clear 102 ml/min 09/06/24 07:23
Total Bilirubin 0.4 mg/dl (0.2-1.3) 09/02/24 10:05
AST 21 U/L (17-59) 09/02/24 10:05
ALT 12 U/L (0-50) 09/02/24 10:05
Alkaline Phosphatase 84 U/L (38-126) 09/02/24 10:05
C-Reactive Protein 195.80 mg/L (0.0-10.00) H 09/04/24 06:51
Most recent labs reviewed.
Micro Results:
09/05/24 12:33 Wound Culture - Preliminary
Abscess Morganella morganii
Gram Stain - Preliminary
09/05/24 12:40 Body Fluid Culture - Preliminary
Joint Fluid No Growth After 48 Hours
Gram Stain - Preliminary
09/03/24 16:45 Wound Culture - Final
Ulcer Morganella morganii
Enterococcus faecalis
Escherichia coli
Gram Stain - Final
09/05/24 12:40 Anaerobic Culture - Preliminary
Hip - Right Culture pending. Anaerobic cultures are examined after 3
days incubation. Additional information to follow.
09/04/24 17:14 Anaerobic Culture - Preliminary
Abscess Culture pending. Anaerobic cultures are examined after 3
days incubation. Additional information to follow.
09/05/24 12:33 Anaerobic Culture - Preliminary
Abscess Culture pending. Anaerobic cultures are examined after 3
days incubation. Additional information to follow.
09/02/24 14:06 Wound Culture - Final
Hip - Right Escherichia coli
Morganella morganii
Enterococcus faecalis
Diptheroids
Gram Stain - Final
09/02/24 20:44 MRSA Screen - Final
Nose No Methicillin Resistant Staphylococcus aureus isolated.
--- NOTE | 2024-09-07 14:22 | W.PN.HOSP.TC ---
Today's Communication/Plan
-
Await input from ortho and ID as to how to proceed at this point
Assessment / Plan
Assessment / Plan
83yo M coming from [facility] with ongoing wound to lateral aspect of his right hip from earlier this month following a fall event, presented to the ED with severe right hip/groin pain, making it difficult to bear weight on the right hip.
CT Pelvis W/o Iv Contrast (09/02)
- Bilateral hip arthroplasties in anatomic position with marked beam hardening artifact.
- No gross recent cortical fracture about the bony pelvis although cannot be entirely excluded on the basis of this study.
Chronic conditions prior to admission
Paroxysmal A-fib
BPH
Bilateral hip arthroplasties
Left knee surgery
Allergy history
Allergic to penicillin (verified)
Assessment and plan
#Right hip pain
-Right hip wound culture (obtained in the ED) positive for E. coli, Morganella, diphtheroid, enterococci
-Repeat anaerobic ulcer culture pending
-Meropenem started in ED- ID switched to cefepime/metronidazole on 09/03
-MRI with and without contrast- no signal changes to indicate acute osteomyelitis-No hip joint effusion or synovitis-4.1 cm loculated fluid collection posterior to the right hip for which an infected collection cannot be excluded.
-Oxycodone 5 and morphine 1 mg every 6 hours for pain management
-Consulted orthopedics -recommend IR image guided aspiration of the right hip joint for culture to assess for prosthetic joint infection-If hip aspiration culture positive, patient will need explant and antibiotic spacer in right hip
-underwent IRAD drainage 09/05: preliminary culture Morganella morganii
-Hip x-ray (09/04): there is no fracture or dislocation, bony destruction, or erosive change
-Activity limited due to hip pain - PureWick
# History of BPH
Continue finasteride
# History of A-fib
Continue Eliquis 2.5-will need to adjust dose once patient is discharged
Continue amiodarone
Pt is a Full Code
Call from [facility] jack requesting update. Discussed extensively, many questions and concerns
Anticipated Discharge: > 48 hours
Subjective/Interval History
-
Date of Service: September 07, 2024
Awake, alert, still with significant Rt hip pain
Objective Data
-
Vital Signs:
Vital Signs
Temp Pulse Resp BP Pulse Ox
97.8 F 51 18 141/72 97
09/07/24 11:32 09/07/24 11:32 09/07/24 11:32 09/07/24 11:32 09/07/24 11:32
I&O
09/06/24 09/07/24 09/08/24
06:59 06:59 06:59
Intake Total 720 / 720 960 / 960
Output Total 1150 / 1150 1050 / 1050
Balance -430 / -430 -90 / -90
Review of Systems
-
History Source: Patient
Constitutional: Denies Fever
EENT: Reports No Symptoms Reported
Respiratory: Reports No Symptoms
Cardiac: Reports No Symptoms
Abdomen/GI: Reports No Symptoms
Musculoskeletal: Reports Joint Pain (Rt hip pain)
Physical Exam
-
General: Well Developed, Well Nourished and No Apparent Distress
HEENT: Normocephalic, Atraumatic and Moist Mucous Membranes
Respiratory: Clear to Auscultation
Cardiac: Regular Rhythm and S1/S2
GI: Soft, Nontender, Nondistended and Normal Bowel Sounds
Musculoskeletal: No Clubbing, No Cyanosis, No Edema and Other (right hip purulent wound, no surronding erythema, not tender )
Skin: Warm and Dry
Neuro: Awake, Alert, Oriented and AO x 3
Psych: Calm
[2024-09-07] MEDS: ZOSYN 50 IV ×2 (14:55→20:05)
[2024-09-07 15:33] VITALS: BP 163/82
[2024-09-07 19:50] VITALS: BP 137/70
[2024-09-07] MEDS: MORPHINE SULFATE 1 MG IV (20:20)
[2024-09-07 23:18] VITALS: BP 146/78
[2024-09-08] VITALS (8 sets, daily range): BP systolic 113–159; BP diastolic 64–83; BMI 22.5
[2024-09-08] MEDS: ZOSYN 50 IV ×4 (02:30→21:13)
[2024-09-08] MEDS: ELIQUIS 5 MG PO ×2 (09:02→21:13)
[2024-09-08] MEDS: PROSCAR 5 MG PO (09:03)
[2024-09-08] MEDS: PACERONE 200 MG PO (09:03)
[2024-09-08] MEDS: ROXICODONE 5 MG PO ×2 (09:03→21:11)
[2024-09-08 09:20] LABS: % Basophils 0.3 % (0-2); % Eosinophils 2.3 % (0-6); % Immature Granulocytes 0.5 % (0-0.5); % Lymphocytes 6.6 % (20.5-51.1); % Monocytes 12.7 % (1.7-9.3); % Neutrophils 77.6 % (42.2-75.2); Absolute Eosinophils 0.2 10^3/uL (0-0.7); Absolute Lymphocytes 0.6 10^3/uL (1.2-3.4); Absolute Monocytes 1.1 10^3/uL (0.1-0.6); Absolute Neutrophils 6.9 10^3/uL (1.4-6.5); Hematocrit 33.6 % (39.0-52.0); Hemoglobin 11.5 g/dL (13.0-18.0); Mean Corp Hgb Conc. 34.2 g/dL (33.0-37.0); Mean Corpuscular Hgb 31.3 pg (27.0-31.0); Mean Corpuscular Volume 91.6 fL (80.0-94.0); Mean Platelet Volume 10.2 fL (7.4-10.4); Nucleated Red Blood Cells % 0 % (-); Platelet Count 241 10^3/uL (130-400); Red Blood Cell Count 3.67 10^6/uL (4.70-6.10); Red Cell Dist. Width 13.9 % (11.5-14.5); White Blood Cell Count 8.8 10^3/uL (4.8-10.8)
--- NOTE | 2024-09-08 09:34 | W.PN.UPDATE ---
Update Note
Progress Note Update
Patient resting comfortably in bed this morning. Complicated case with a history of right INDIO done about 20 years ago at [facility]. Currently dealing with a right lateral hip wound, which we believe likely probes down to bone. Ulcer grew out Morganella
Morganii, Enterococcus faecali, E. Coli, and diphtheroids. underwent IR guided drainage of the abscess on 05 September 2024. Abscess with Morganella Morganii. joint aspirate NGTD (48 hours). currently onIV Zosyn per infectious disease. Currently
Afeb. AM labs pending. Right hip with packed wound laterally. Scant drainage. soft dressing in place. Continue IV ABX at this time and monitor clinical picture closely. unfortunately we have a strong suspicion this involves the joint and that the
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 Our hip specialists to discuss further, with recommendations to follow.
[2024-09-08 09:36] LABS: ALT (SGPT) 18 U/L (0-50); AST (SGOT) 34 U/L (17-59); Albumin 2.6 g/dl (3.5-5.0); Alkaline Phosphatase 83 U/L (38-126); Blood Urea Nitrogen 18 mg/dl (9-20); Calcium 8.2 mg/dl (8.4-10.2); Carbon Dioxide 29 mmol/L (22-30); Chloride 100 mmol/L (98-107); Estimated Creatinine Clearance 85 ml/min; Glucose 84 mg/dl (70-99); Potassium 3.2 mmol/L (3.5-5.1); Sodium 136 mmol/L (135-145); Total Bilirubin 0.5 mg/dl (0.2-1.3); Total Protein 5.9 g/dl (6.3-8.2); eGFR > 60.00
--- NOTE | 2024-09-08 10:33 | W.PN.ID1 ---
Date of Service
Date of Service: September 08, 2024
Today's Communication
- joint fluid now with strep species; abscess with Morganella - likely polymicrobial
- tolerating zosyn - continue at this time
- I can attempt medical treatment with 6 weeks of IV antibiotics followed by suppression if no surgery planned, discussed with patient and explained that I cannot guarantee that it will be effective
- follow clinically
- discussed with Dr Bauer who is recommending patient follow up with his original surgeon - given that surgery was 20 years ago records likely no longer available, hopefully he/she has not retired.
Assessment / Plan
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
Hip abscess
L hip replacement
History of poor wound healing requiring subacute wound care
Tolerating zosyn - he is not allergic to penicillin - removed allergy
- patient remains unable to ambulate, discussed with Dr Bauer who is recommending patient follow up with his original surgeon - given that surgery was 20 years ago records likely no longer available, hopefully he/she has not retired.
- joint fluid now with strep species; abscess with Morganella - likely polymicrobial
- tolerating zosyn - continue at this time
- PICC line
- script to embedded case manager
- I can attempt medical treatment with 6 weeks of IV antibiotics followed by suppression if no surgery planned, discussed with patient and explained that I cannot guarantee that it will be effective
- follow clinically
Chief Complaint
-: Other (hip abscess, chronic wound)
Subjective / Review of Systems
afebrile
bp stable
no events overnight
still cannot ambulate
Vital Signs / Physical Exam
Vital Signs
Vital Signs
Temp Pulse Resp BP Pulse Ox
98.0 F 58 20 159/83 95
09/08/24 07:51 09/08/24 07:51 09/08/24 07:51 09/08/24 07:51 09/08/24 07:51
Physical Exam
Constitutional: No Acute Distress and Chronically Ill
Cardiovascular: Regular Rate and S1/S2; Negative Murmur or Rub
Pulmonary: Clear and Symmetric; Negative Wheezes or Rales
Gastrointestinal: Soft, Non Tender, Non Distended and Normal Bowel Sounds
Skin: Warm and Dry; Negative Rash or Jaundice
Wound: Other (refused dressing take down 'it was just done' )
Objective Data
Lab Data
Lab Results
09/08/24 08:01
09/08/24 08:01
Estimated Creat Clear 85 ml/min 09/08/24 08:01
Total Bilirubin 0.5 mg/dl (0.2-1.3) 09/08/24 08:01
AST 34 U/L (17-59) 09/08/24 08:01
ALT 18 U/L (0-50) 09/08/24 08:01
Alkaline Phosphatase 83 U/L (38-126) 09/08/24 08:01
C-Reactive Protein 195.80 mg/L (0.0-10.00) H 09/04/24 06:51
Most recent labs reviewed.
Micro Results:
09/05/24 12:40 Body Fluid Culture - Preliminary
Joint Fluid No Growth After 48 Hours
Gram Stain - Preliminary
09/05/24 12:33 Wound Culture - Preliminary
Abscess Morganella morganii
Gram Stain - Preliminary
09/03/24 16:45 Wound Culture - Final
Ulcer Morganella morganii
Enterococcus faecalis
Escherichia coli
Gram Stain - Final
09/05/24 12:40 Anaerobic Culture - Preliminary
Hip - Right Culture pending. Anaerobic cultures are examined after 3
days incubation. Additional information to follow.
09/04/24 17:14 Anaerobic Culture - Preliminary
Abscess Culture pending. Anaerobic cultures are examined after 3
days incubation. Additional information to follow.
09/05/24 12:33 Anaerobic Culture - Preliminary
Abscess Culture pending. Anaerobic cultures are examined after 3
days incubation. Additional information to follow.
09/02/24 14:06 Wound Culture - Final
Hip - Right Escherichia coli
Morganella morganii
Enterococcus faecalis
Diptheroids
Gram Stain - Final
09/02/24 20:44 MRSA Screen - Final
Nose No Methicillin Resistant Staphylococcus aureus isolated.
Care Review
Plan reviewed with: Physician (Dr Bauer and Dr Tolentino - brandoner text; Dr Bauer recommending patient follow up with his previous surgeon)
--- NOTE | 2024-09-08 11:03 | CM ---
Addendum entered by Keerthi Aguero 09/08/24 14:11:
finishing manager received a script for home infusion from infectious disease physician, case operator spoke with patient about options for home infusion, and patient has selected [facility], case operator reached out to [facility] and will check out
patient's benefit for home infusion. Referral sent to [facility].
Original Note:
finishing manager reviewed patient's chart and met with patient to discuss discharge planning, physial therapy are recommending skilled placement, patient made aware but patient states that he wants to see what the physicians have to say first, patient
is not sure if he will need surgery.
Plan; Will await update from physician and the review plan with patient, patient resides with his spouse at [facility] living.
[2024-09-08] MEDS: KCL ELIXIR 40 MEQ PO (11:42)
--- NOTE | 2024-09-08 15:25 | W.PN.HOSP.TC ---
Addendum entered and electronically signed by Rajan Linder MD 09/08/24 17:53:
Right hip pain secondary to pji
-s/p hip cx growing morganella, ecoli, enterococci and diphteroids
-s/p ir guided drainage cx growing streptococcus
-continue iv zosyn, tolerating well, plan for 6weeks, will need picc line
-id following script provided
-likely needs definitive treatment with washout with explant/spacer, appreciate ortho's input, attempting to reach out to his orthopedic surgeon at [facility], chart has been faxed to them to review the case
hypoK
-replete
Original Note:
Today's Communication/Plan
-
Contact Dr. Carlson and send documents to see if he is willing to operate on the right hip
Continue Zosyn for now- Will decide on eventual antibiotic once antibiotic sensitivity of joint infection is resulted
Replete potassium
Will need eventual PICC line placement on discharge
Assessment / Plan
Assessment / Plan
83yo M coming from [facility] with ongoing wound to lateral aspect of his right hip from earlier this month following a fall event, presented to the ED with severe right hip/groin pain, making it difficult to bear weight on the right hip.
CT Pelvis W/o Iv Contrast (09/02)
- Bilateral hip arthroplasties in anatomic position with marked beam hardening artifact.
- No gross recent cortical fracture about the bony pelvis although cannot be entirely excluded on the basis of this study.
Hip x-ray (09/04)
- There is no fracture or dislocation, bony destruction, or erosive change
MRI with and without contrast (09/04)
- No signal changes to indicate acute osteomyelitis-No hip joint effusion or synovitis-4.1 cm loculated fluid collection posterior to the right hip for which an infected collection cannot be excluded.
Chronic conditions prior to admission
Paroxysmal A-fib
BPH
Bilateral hip arthroplasties
Left knee surgery
Allergy history
Allergic to penicillin (verified)
Assessment and plan
#Right hip pain
-Right hip wound culture (obtained in the ED) positive for E. coli, Morganella, diphtheroid, enterococci
-Repeat anaerobic ulcer culture-no anaerobes isolated
-Meropenem started in ED- ID switched to cefepime/metronidazole on 09/03-course completed on 09/06 and switched to Zosyn on 09/07
-Underwent IRAD drainage (09/05): preliminary culture of joint aspiration positive for Streptococcus disease and IR guided wound culture positive for Morganella morganii
-Appreciate ID-medical treatment with 6 weeks of IV antibiotics followed by suppression if no surgery planned
-Appreciate orthopedics -Continue IV ABX at this time and monitor clinical picture closely
Dr. Bauer has spoke with Dr. Carlson's office and requested documents have been faxed-will follow-up to see if Dr. Carlson accepts to operate on patient's right hip
-Oxycodone 5 and morphine 1 mg every 6 hours for pain management
-Activity limited due to hip pain - PureWick
-Patient will need arrangements for PICC line on discharge
# Hypokalemia
Replete as needed
# History of BPH
Continue finasteride
# History of A-fib
Continue Eliquis-adjusted dose to 5
Continue amiodarone
CODE STATUS: Full code
Anticipated Discharge: 24 - 48 hours
Subjective/Interval History
-
Date of Service: September 08, 2024
Patient states his right hip pain is about the same as before. He is not able to get out of bed and ambulate. Denies any fevers or chills. Does not offer any more complaints.
Objective Data
-
Labs:
Laboratory Results
09/08/24
08:01
WBC 8.8
Hgb 11.5 L
Hct 33.6 L
Plt Count 241 D
Sodium 136
Potassium 3.2 L
Chloride 100
Carbon Dioxide 29
BUN 18
Creatinine 0.7
Glucose 84
Calcium 8.2 L
Total Bilirubin 0.5
AST 34
ALT 18
Alkaline Phosphatase 83
Vital Signs:
Vital Signs
Temp Pulse Resp BP Pulse Ox
97.6 F 70 18 113/67 97
09/08/24 15:17 09/08/24 15:17 09/08/24 15:17 09/08/24 15:17 09/08/24 15:17
I&O
09/07/24 09/08/24 09/09/24
06:59 06:59 06:59
Intake Total 960 / 960 1235 / 1235
Output Total 1050 / 1050 1600 / 1600
Balance -90 / -90 -365 / -365
Review of Systems
-
History Source: Patient
All other systems: Reviewed and negative
Constitutional: Reports Other (Right hip pain not able to get out of bed)
Physical Exam
-
General: Well Developed, Pain and Conversant
HEENT: Normocephalic, Moist Mucous Membranes and Anicteric
Respiratory: Clear to Auscultation
Cardiac: Regular Rhythm and S1/S2
GI: Soft, Nontender, Nondistended and Normal Bowel Sounds
Genito-urinary: Other (Purewick)
Musculoskeletal: No Clubbing, No Cyanosis, No Edema and Other (Right hip wound with scant purulent discharge, not tender to touch, no surrounding erythema, soft dressing in place)
Skin: Warm and Dry
Neuro: Awake, Alert, Oriented and AO x 3
[2024-09-09] VITALS (7 sets, daily range): BP systolic 127–155; BP diastolic 69–83; PULSE 59; BMI 22.2
[2024-09-09] MEDS: ZOSYN 50 IV ×4 (02:24→20:58)
[2024-09-09 05:18] LABS: Hematocrit 31.8 % (39.0-52.0); Hemoglobin 10.3 g/dL (13.0-18.0); Mean Corp Hgb Conc. 32.4 g/dL (33.0-37.0); Mean Corpuscular Hgb 30.4 pg (27.0-31.0); Mean Corpuscular Volume 93.8 fL (80.0-94.0); Mean Platelet Volume 9.9 fL (7.4-10.4); Platelet Count 242 10^3/uL (130-400); Red Blood Cell Count 3.39 10^6/uL (4.70-6.10); Red Cell Dist. Width 14.1 % (11.5-14.5); White Blood Cell Count 10.4 10^3/uL (4.8-10.8)
[2024-09-09 05:41] LABS: Blood Urea Nitrogen 20 mg/dl (9-20); Calcium 8.1 mg/dl (8.4-10.2); Carbon Dioxide 28 mmol/L (22-30); Chloride 104 mmol/L (98-107); Estimated Creatinine Clearance 85 ml/min; Glucose 97 mg/dl (70-99); Potassium 3.4 mmol/L (3.5-5.1); Sodium 138 mmol/L (135-145); eGFR > 60.00
--- NOTE | 2024-09-09 07:01 | W.PN.UPDATE ---
Update Note
Progress Note Update
Patient seen and evaluated by Orthopedic surgery this morning. Unfortunately, he is dealing with a R INDIO PJI. He endorses pain to his right hip/anterolateral thigh, however states that he was able to ambulate from bed to door yesterday with walker.
He denies any constitutional symptoms. R INDIO done about 20 years ago at [facility].
Ulcer wound culture 09/03/2024 with few presumptive Morganella morganii, few Enterococcus faecalis, rare Escherichia coli, rare Diptheroids. Currently on Cefepime/Metronidazole per ID.
Patient underwent IR guided drainage of abscess and joint on 09/05/2024.
Preliminary abscess culture with rare presumptive Morganella morganii.
Preliminary fluid culture of right hip joint growing Streptococcus species.
Case discussed with Dr. Bauer. Patient records sent to Dr. Rojas at [facility] (original surgeon) and Dr. Carlson at [facility] (L TKA 04/2024). Waiting for them to review records/case for Mr. Fall. Discussed with OR, equipment needed may be a factor. Will
continue to follow.
[2024-09-09] MEDS: ELIQUIS 5 MG PO ×2 (08:42→20:57)
[2024-09-09] MEDS: PACERONE 200 MG PO (08:42)
[2024-09-09] MEDS: PROSCAR 5 MG PO (08:43)
[2024-09-09] MEDS: ROXICODONE 5 MG PO (08:43)
[2024-09-09] MEDS: DULCOLAX 10 MG RECTAL (10:09)
--- NOTE | 2024-09-09 11:27 | PN.CDI ---
CDI
- -
CDI:
Physician Documentation Request
Admit Date: 09/02/24 14:07
Dear Doctor,
Please review the following and provide your response in the progress notes.
Clinical Indicators:
- 09/03 PN 'Right Hip Wound with associated cellulitis'
- 09/04 PN 'Right Hip Wound with abscess'
- 09/07 PN 'Right hip wound'
- 09/08 PN 'Right hip pain secondary to pji'
- 09/07 ID 'L hip wound with cellulitis... likely PJI in my opinion given contiguous abscess'
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
In an attempt to clarify potentially conflicting documentation, please clarify the etiology of right hip wound:
Right hip PJI with abscess with cellulitis
Right hip PJI with abscess without cellulitis
Other (please specify)
Use of terms such as suspected, likely, concern for, or probable (associated with a specific diagnosis that is being evaluated, monitored, or treated as if it exists) are acceptable and can be coded in the inpatient setting, when documented at the
time of discharge.
Thank you,
Juan Cary RN
CDI Specialist
Please use your independent medical judgment in providing your response.
--- NOTE | 2024-09-09 12:07 | W.PN.HOSP.TC ---
Addendum entered and electronically signed by Rajan Linder MD 09/09/24 14:08:
Right hip pain secondary to pji
-s/p hip cx growing morganella, ecoli, enterococci and diphteroids
-s/p ir guided drainage cx growing streptococcus
-continue iv zosyn, tolerating well, plan for 6weeks, will need picc line
-id following script provided
-likely needs definitive treatment with washout with explant/spacer, appreciate ortho's input, attempting to reach out to his orthopedic surgeon at [facility], chart has been faxed to them to review the case
constipation
-without relief from bowel reg and suppository
-will add fleet enema at this time
Original Note:
Today's Communication/Plan
-
Follow-up on any response from Dr. Carlson's office
Continue Zosyn for now
Rest of care as before
Assessment / Plan
Assessment / Plan
83yo M coming from [facility] with ongoing wound to lateral aspect of his right hip from earlier this month following a fall event, presented to the ED with severe right hip/groin pain, making it difficult to bear weight on the right hip.
CT Pelvis W/o Iv Contrast (09/02)
- Bilateral hip arthroplasties in anatomic position with marked beam hardening artifact.
- No gross recent cortical fracture about the bony pelvis although cannot be entirely excluded on the basis of this study.
Hip x-ray (09/04)
- There is no fracture or dislocation, bony destruction, or erosive change
MRI with and without contrast (09/04)
- No signal changes to indicate acute osteomyelitis-No hip joint effusion or synovitis-4.1 cm loculated fluid collection posterior to the right hip for which an infected collection cannot be excluded.
Chronic conditions prior to admission
Paroxysmal A-fib
BPH
Bilateral hip arthroplasties
Left knee surgery
Allergy history
Allergic to penicillin from previous records
Assessment and plan
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
-Right hip wound culture (obtained in the ED) positive for E. coli, Morganella, diphtheroid, enterococci
-Repeat anaerobic ulcer culture-no anaerobes isolated
-Meropenem started in ED- ID switched to cefepime/metronidazole on 09/03-course completed on 09/06 and switched to Zosyn on 09/07
-Underwent IRAD drainage (09/05): preliminary culture of joint aspiration positive for Streptococcus disease and IR guided wound culture positive for Morganella morganii
-Appreciate ID-medical treatment with 6 weeks of IV antibiotics followed by suppression if no surgery planned
-Appreciate orthopedics -will continue to follow clinically
Dr. Bauer spoke with Dr. Carlson's office and requested documents have been faxed-still waiting to hear if Dr. Carlson accepts spacer placement of patient's right hip
-Oxycodone 5 and morphine 1 mg every 6 hours for pain management
-Activity limited due to hip pain - PureWick
-PICC line placed yesterday
# Hypokalemia
Replete as needed
# History of BPH
Continue finasteride
# History of A-fib
Continue Eliquis-adjusted dose to 5
Continue amiodarone
CODE STATUS: Full code
Anticipated Discharge: > 48 hours
Subjective/Interval History
-
Date of Service: September 09, 2024
Patient states he is confused about plan regarding surgery. I discussed the treatment plan with him in the morning to the best of my knowledge.
Complains of right hip pain and not being able to ambulate. Does not offer any other complaints.
Objective Data
-
Labs:
Laboratory Results
09/09/24
05:01
WBC 10.4
Hgb 10.3 L
Hct 31.8 L
Plt Count 242
Sodium 138
Potassium 3.4 L
Chloride 104
Carbon Dioxide 28
BUN 20
Creatinine 0.7
Glucose 97
Calcium 8.1 L
Vital Signs:
Vital Signs
Temp Pulse Resp BP Pulse Ox
97.7 F 54 18 146/78 99
09/09/24 11:15 09/09/24 11:15 09/09/24 11:15 09/09/24 11:15 09/09/24 11:15
I&O
09/08/24 09/09/24 09/10/24
06:59 06:59 06:59
Intake Total 1235 / 1235 1320 / 1320
Output Total 1600 / 1600 1400 / 1400
Balance -365 / -365 -80 / -80
Review of Systems
-
History Source: Patient
All other systems: Reviewed and negative
Constitutional: Reports Fatigue and Other (Right hip pain)
Physical Exam
-
HEENT: Normocephalic, Moist Mucous Membranes and Anicteric
Respiratory: Clear to Auscultation
Cardiac: Regular Rhythm and S1/S2
GI: Soft, Nontender, Nondistended and Normal Bowel Sounds
Musculoskeletal: No Clubbing, No Cyanosis, No Edema and Other (Active wound on lateral aspect of right hip, minimal purulent discharge, nontender, no surrounding erythema; Patient unable to ambulate because of right hip pain)
Skin: Warm and Dry
Neuro: Awake, Alert, Oriented and Other
Psych: Calm
--- NOTE | 2024-09-09 12:35 | W.PN.ID1 ---
Date of Service
Date of Service: September 09, 2024
Today's Communication
- joint fluid now with strep species; abscess with Morganella - likely polymicrobial; superficial culture with Morganella, E faecalis, E coli
- recommend washout and joint replacement; surgical team is discussing with surgeons previously involved in his care
- tolerating zosyn - continue at this time
- PICC line
- script to case work aide
Assessment / Plan
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
Hip abscess
L hip replacement
History of poor wound healing requiring subacute wound care
- joint fluid now with strep species; abscess with Morganella - likely polymicrobial; superficial culture with Morganella, E faecalis, E coli
- recommend washout and joint replacement; surgical team is discussing with surgeons previously involved in his care
- tolerating zosyn - continue at this time
- PICC line
- script to case work aide
- follow clinically
Chief Complaint
-: Other (hip abscess, chronic wound)
Subjective / Review of Systems
afebrile
bp stable
no purulent drainage from the wound
tolerating zosyn - no pruritus or rashes
Vital Signs / Physical Exam
Vital Signs
Vital Signs
Temp Pulse Resp BP Pulse Ox
97.7 F 54 18 146/78 99
09/09/24 11:15 09/09/24 11:15 09/09/24 11:15 09/09/24 11:15 09/09/24 11:15
Physical Exam
Constitutional: No Acute Distress
Cardiovascular: Regular Rate and S1/S2; Negative Murmur or Rub
Pulmonary: Clear and Symmetric; Negative Wheezes or Rales
Gastrointestinal: Soft, Non Tender, Non Distended and Normal Bowel Sounds
Skin: Warm and Dry; Negative Rash or Jaundice
Wound: Other (no purulent drainage, packed, )
Objective Data
Lab Data
Lab Results
09/09/24 05:01
09/09/24 05:01
Estimated Creat Clear 85 ml/min 09/09/24 05:01
Total Bilirubin 0.5 mg/dl (0.2-1.3) 09/08/24 08:01
AST 34 U/L (17-59) 09/08/24 08:01
ALT 18 U/L (0-50) 09/08/24 08:01
Alkaline Phosphatase 83 U/L (38-126) 09/08/24 08:01
C-Reactive Protein 195.80 mg/L (0.0-10.00) H 09/04/24 06:51
Most recent labs reviewed.
Micro Results:
09/05/24 12:40 Body Fluid Culture - Preliminary
Joint Fluid Streptococcus species
Gram Stain - Preliminary
09/05/24 12:33 Anaerobic Culture - Preliminary
Abscess NO ANAEROBES ISOLATED
09/04/24 17:14 Anaerobic Culture - Preliminary
Abscess Culture pending. Anaerobic cultures are examined after 3
days incubation. Additional information to follow.
09/05/24 12:40 Anaerobic Culture - Preliminary
Hip - Right NO ANAEROBES ISOLATED
09/05/24 12:33 Wound Culture - Preliminary
Abscess Morganella morganii
Gram Stain - Preliminary
09/03/24 16:45 Wound Culture - Final
Ulcer Morganella morganii
Enterococcus faecalis
Escherichia coli
Gram Stain - Final
09/02/24 14:06 Wound Culture - Final
Hip - Right Escherichia coli
Morganella morganii
Enterococcus faecalis
Diptheroids
Gram Stain - Final
09/02/24 20:44 MRSA Screen - Final
Nose No Methicillin Resistant Staphylococcus aureus isolated.
--- NOTE | 2024-09-09 12:54 | CM ---
manager solution reviewed patient's chart and met with patient and patient reports that he is hoping that he will be able to have a solution and plan for his hip while at [facility], case operator received a script from ID physician and referral
sent to [facility] and cost of home IV ABX will be $40 per week, and nursing and supplies are covered 100%, patient made aware.
Plan; To follow up with physician notes on plan for patient.
[2024-09-09] MEDS: KCL 40 MEQ PO (13:24)
[2024-09-09 14:48] LABS: Magnesium 2.1 mg/dl (1.6-2.3)
[2024-09-10] MEDS: ZOSYN 50 IV ×4 (01:34→20:30)
[2024-09-10 03:10] VITALS: BP 133/69
[2024-09-10 05:41] LABS: Hematocrit 31.2 % (39.0-52.0); Hemoglobin 10.1 g/dL (13.0-18.0); Mean Corp Hgb Conc. 32.4 g/dL (33.0-37.0); Mean Corpuscular Hgb 30.1 pg (27.0-31.0); Mean Corpuscular Volume 92.9 fL (80.0-94.0); Mean Platelet Volume 9.8 fL (7.4-10.4); Platelet Count 268 10^3/uL (130-400); Red Blood Cell Count 3.36 10^6/uL (4.70-6.10); Red Cell Dist. Width 14.1 % (11.5-14.5); White Blood Cell Count 11.7 10^3/uL (4.8-10.8)
[2024-09-10 05:49] LABS: Blood Urea Nitrogen 17 mg/dl (9-20); Calcium 8.1 mg/dl (8.4-10.2); Carbon Dioxide 28 mmol/L (22-30); Chloride 103 mmol/L (98-107); Estimated Creatinine Clearance 84 ml/min; Glucose 91 mg/dl (70-99); Potassium 3.6 mmol/L (3.5-5.1); Sodium 136 mmol/L (135-145); eGFR > 60.00
[2024-09-10 06:00] VITALS: BMI 22.2
[2024-09-10 07:23] VITALS: BP 143/76
--- NOTE | 2024-09-10 07:36 | W.PN.UPDATE ---
Update Note
Progress Note Update
Patient is resting comfortably in bed this morning. He endorses minimal pain in the hip at rest, but endorses increased pain with any movement. Unfortunately, he is dealing with a R INDIO PJI. He denies any constitutional symptoms. R INDIO done about 20
years ago at [facility].
Aspiration of joint fluid now with Strep parasanguis. Abscess with Morganella - likely polymicrobial. Superficial culture with Morganella, E faecalis, E coli.
Currently on Zosyn per ID.
Dr. Carlson at [facility] not willing to accept patient. Unfortunately, [facility] doesn't participate in Medicare. Looking to transfer patient to [place] for continued management. This was all explained to Mr. Fall at the bedside. He verbalized
understanding. Orthopedics will continue to follow along for now.
[2024-09-10] MEDS: PROSCAR 5 MG PO (08:50)
[2024-09-10] MEDS: PACERONE 200 MG PO (08:50)
[2024-09-10] MEDS: ELIQUIS 5 MG PO ×2 (08:50→20:30)
[2024-09-10] MEDS: ROXICODONE 5 MG PO ×2 (08:50→20:36)
[2024-09-10 11:00] VITALS: BP 121/69
--- NOTE | 2024-09-10 12:07 | W.PN.HOSP.TC ---
Addendum entered and electronically signed by Rajan Linder MD 09/10/24 17:25:
Mr. Fall today told me that he saw Dr. Weeks from [facility] 5yrs ago for Right hip pain.
-I left a VM with is office and PAElijah that I found on his website.
-Plan to potentially transfer to [place] where he operates out of.
--Unfortunntly, I did call [facility] to initiate but the declined as the oncall orthopedic 'I do not do joints and we do not have avaliablity for him'.
--Hospitalitst Dr. Alvarez was also on the line. He was not accepted therefore, I did proceed with calling Orthopedics at [facility] who are more then willing to bring him over there as a urgent transfer for explant/spacer eval.
----Dr. Drake from [facility] accepgted him and informed me that Ortho should wash him out if he goes into shock.
Total time spent reviewing case speaking wiht consultants via TT, his daughter and other hospitals 2hours.
Original Note:
Today's Communication/Plan
-
Continue Zosyn for now
Ortho considering transfer to [facility] for spacer implant
Rest of care as before
Assessment / Plan
Assessment / Plan
83yo M coming from [facility] with ongoing wound to lateral aspect of his right hip from earlier this month following a fall event, presented to the ED with severe right hip/groin pain, making it difficult to bear weight on the right hip.
CT Pelvis W/o Iv Contrast (09/02)
- Bilateral hip arthroplasties in anatomic position with marked beam hardening artifact.
- No gross recent cortical fracture about the bony pelvis although cannot be entirely excluded on the basis of this study.
Hip x-ray (09/04)
- There is no fracture or dislocation, bony destruction, or erosive change
MRI with and without contrast (09/04)
- No signal changes to indicate acute osteomyelitis-No hip joint effusion or synovitis-4.1 cm loculated fluid collection posterior to the right hip for which an infected collection cannot be excluded.
Chronic conditions prior to admission
Paroxysmal A-fib
BPH
Bilateral hip arthroplasties
Left knee surgery
Allergy history
Allergic to penicillin from previous records
Assessment and plan
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
-Right hip wound culture (obtained in the ED) positive for E. coli, Morganella, diphtheroid, enterococci
-Repeat anaerobic ulcer culture-no anaerobes isolated
-Meropenem started in ED- ID switched to cefepime/metronidazole on 09/03-course completed on 09/06 and switched to Zosyn on 09/07
-Underwent IRAD drainage (09/05): preliminary culture of joint aspiration positive for Streptococcus disease and IR guided wound culture positive for Morganella morganii
-Appreciate ID-medical treatment with 6 weeks of IV antibiotics followed by suppression if no surgery planned-patient ideally needs a spacer
-Appreciate orthopedics-Dr. Bauer spoke with Dr. Carlson's office and requested documents were faxed-Dr. Carlson did not accept patient- Ortho is considering transfer to [facility]
-Oxycodone 5 and morphine 1 mg every 6 hours for pain management
-Activity limited due to hip pain
-PICC line placed yesterday
# Hypokalemia
Resolved
Replete if needed
# History of BPH
Continue finasteride
# History of A-fib
Continue Eliquis-adjusted dose to 5
Continue amiodarone
Spoke to patient's daughter, Danya, yesterday and updated her on treatment plan.
CODE STATUS: Full code
Anticipated Discharge: 24 - 48 hours
Subjective/Interval History
-
Date of Service: September 10, 2024
Patient states he is confused why spacer cannot be placed at [place] or [place]. I explained to the best of my knowledge and updated him about his treatment plan. Mentions hip pain is better than before he came in.
Objective Data
-
Labs:
Laboratory Results
09/10/24
04:57
WBC 11.7 H
Hgb 10.1 L
Hct 31.2 L
Plt Count 268
Sodium 136
Potassium 3.6
Chloride 103
Carbon Dioxide 28
BUN 17
Creatinine 0.7
Glucose 91
Calcium 8.1 L
Vital Signs:
Vital Signs
Temp Pulse Resp BP Pulse Ox
98.0 F 62 20 121/69 97
09/10/24 11:00 09/10/24 11:00 09/10/24 11:00 09/10/24 11:00 09/10/24 11:00
I&O
09/09/24 09/10/24 09/11/24
06:59 06:59 06:59
Intake Total 1470 / 1470 970 / 970
Output Total 1400 / 1400 645 / 645
Balance 70 / 70 325 / 325
Review of Systems
-
History Source: Patient
All other systems: Reviewed and negative
Constitutional: Reports Fatigue and Other (Right hip pain, improved)
Physical Exam
-
HEENT: Normocephalic, Moist Mucous Membranes and Anicteric
Respiratory: Clear to Auscultation
Cardiac: Regular Rhythm and S1/S2
GI: Soft, Nontender, Nondistended and Normal Bowel Sounds
Musculoskeletal: No Clubbing, No Cyanosis, No Edema and Other (Pressure wound on lateral aspect of right hip, minimal purulent discharge, nontender, no surrounding erythema; difficult to ambulate because of right hip pain)
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
Neuro: Awake, Alert, Oriented and Other
Psych: Calm
--- NOTE | 2024-09-10 12:11 | W.PN.ID1 ---
Date of Service
Date of Service: September 10, 2024
Today's Communication
- recommend washout and joint replacement; surgical team is working on possible transfer
- tolerating zosyn - continue at this time
Assessment / Plan
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
Hip abscess
L hip replacement
History of poor wound healing requiring subacute wound care
- joint fluid now with strep species; abscess with Morganella - likely polymicrobial; superficial culture with Morganella, E faecalis, E coli
- recommend washout and joint replacement; surgical team is working on possible transfer
- tolerating zosyn - continue at this time
- PICC line - script to adult protective caseworker
- follow clinically, possibly for transfer
Chief Complaint
-: Other (hip abscess, chronic wound)
Subjective / Review of Systems
afebrile
bp stable
no events overnight
Vital Signs / Physical Exam
Vital Signs
Vital Signs
Temp Pulse Resp BP Pulse Ox
98.0 F 62 20 121/69 97
09/10/24 11:00 09/10/24 11:00 09/10/24 11:00 09/10/24 11:00 09/10/24 11:00
Physical Exam
Constitutional: No Acute Distress
Cardiovascular: Regular Rate and S1/S2; Negative Murmur or Rub
Pulmonary: Clear and Symmetric; Negative Wheezes or Rales
Gastrointestinal: Soft, Non Tender, Non Distended and Normal Bowel Sounds
Skin: Warm and Dry; Negative Rash or Jaundice
Objective Data
Lab Data
Lab Results
09/10/24 04:57
09/10/24 04:57
Estimated Creat Clear 84 ml/min 09/10/24 04:57
Total Bilirubin 0.5 mg/dl (0.2-1.3) 09/08/24 08:01
AST 34 U/L (17-59) 09/08/24 08:01
ALT 18 U/L (0-50) 09/08/24 08:01
Alkaline Phosphatase 83 U/L (38-126) 09/08/24 08:01
C-Reactive Protein 195.80 mg/L (0.0-10.00) H 09/04/24 06:51
Most recent labs reviewed.
Micro Results:
09/05/24 12:40 Body Fluid Culture - Final
Joint Fluid Streptococcus parasanguis
Gram Stain - Final
09/05/24 12:40 Anaerobic Culture - Final
Hip - Right NO ANAEROBES ISOLATED
09/05/24 12:33 Wound Culture - Final
Abscess Morganella morganii
Gram Stain - Final
09/05/24 12:33 Anaerobic Culture - Final
Abscess NO ANAEROBES ISOLATED
09/04/24 17:14 Anaerobic Culture - Final
Abscess NO ANAEROBES ISOLATED
09/03/24 16:45 Wound Culture - Final
Ulcer Morganella morganii
Enterococcus faecalis
Escherichia coli
Gram Stain - Final
09/02/24 14:06 Wound Culture - Final
Hip - Right Escherichia coli
Morganella morganii
Enterococcus faecalis
Diptheroids
Gram Stain - Final
09/02/24 20:44 MRSA Screen - Final
Nose No Methicillin Resistant Staphylococcus aureus isolated.
--- NOTE | 2024-09-10 14:02 | PN.CDI ---
CDI
- -
CDI:
Physician Documentation Request
Admit Date: 09/02/24 14:07
Dear Doctor,
Please review the following and provide your response in the progress notes.
Clinical Indicators:
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
- 09/05 Wound note 'Confirmed R hip packing and that R hip wound is a pressure injury (present on admission) with Dr. Salvador'
- RN skin wound documentation indicates:
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
- Stage 2 sacrum pressure injury, POA
Physician documentation of the type and location of wounds is required for compliant documentation. Based on the above clinical findings and your assessment, please provide the following in your progress note:
1. Location of the ulcer/wound, including laterality.
2. Type (etiology) of ulcer/wound:
- Traumatic wound
- Pressure (decubitus) ulcer
- Non-healing surgical wound
- Other
Use of terms such as suspected, likely, concern for, or probable (associated with a specific diagnosis that is being evaluated, monitored, or treated as if it exists) are acceptable and can be coded in the inpatient setting, when documented at the
time of discharge.
Thank you,
Juan Cary RN
CDI Specialist
Please use your independent medical judgment in providing your response.
*Source: National Pressure Ulcer Advisory Panel (NPUAP)
--- NOTE | 2024-09-10 14:13 | CM ---
firmware manager continues to follow with patient and spoke with patient today, patient is waiting on final plan regarding possible surgery and where surgery will take placement.
Plan; To follow up with patient progress.
[2024-09-10 15:35] VITALS: BP 144/80
[2024-09-10 19:44] VITALS: BP 140/81
--- NOTE | 2024-09-10 21:56 | VATNOTE ---
Called by freight hustler for reddened area below Rt. Picc, placed 2 days ago. Pt. denies pain, no palpable cord, reddened, warm to touch area measures approximately, 10cm x 6 cm. Recommend US to r/o clot, freight hustler aware. Will follow.
--- NOTE | 2024-09-10 22:05 | W.PN.UPDATE ---
Update Note
Progress Note Update
Notified by RN, patient right upper extremity is warm, red and swollen. Patient stated he has no pain at site and was unaware of any new findings. IV team evaluated PICC line site. Ordered U/S of right upper extremity to r/o DVT. U/S negative for
DVT. Pt on Zosyn at this time, being followed by infectious disease, will ask to evaluate for possible infection.
--- NOTE | 2024-09-10 22:12 | PTCARENOTE ---
New reddened and warm to the touch area below right PICC found on assessment. Pt denies pain and itching. Pt unaware of new reddened and warm area. Notified TATE Pulido. TATE Pulido assessed pt at bedside. Notified IV team to assess
reddened area. New orders placed. Plan of care ongoing.
[2024-09-10 23:40] VITALS: BP 146/79
[2024-09-11] MEDS: ZOSYN 50 IV ×4 (03:03→20:00)
[2024-09-11 03:34] VITALS: BP 144/80
[2024-09-11 05:29] LABS: Hematocrit 28.8 % (39.0-52.0); Hemoglobin 9.8 g/dL (13.0-18.0); Mean Corpuscular Volume 91.1 fL (80.0-94.0); Mean Platelet Volume 9.8 fL (7.4-10.4); Platelet Count 281 10^3/uL (130-400); Red Blood Cell Count 3.16 10^6/uL (4.70-6.10); White Blood Cell Count 10.4 10^3/uL (4.8-10.8)
[2024-09-11 05:51] LABS: Blood Urea Nitrogen 17 mg/dl (9-20); Calcium 8.2 mg/dl (8.4-10.2); Carbon Dioxide 29 mmol/L (22-30); Chloride 104 mmol/L (98-107); Estimated Creatinine Clearance 84 ml/min; Glucose 81 mg/dl (70-99); Potassium 3.4 mmol/L (3.5-5.1); Sodium 136 mmol/L (135-145); eGFR > 60.00
[2024-09-11 06:00] VITALS: BMI 22.1
[2024-09-11 07:30] VITALS: BP 149/76
--- NOTE | 2024-09-11 07:57 | W.PN.UPDATE ---
Update Note
Progress Note Update
Dr. Bauer has coordinated transfer to [facility] to address his right total hip arthroplasty PJI. Dr. Drake has agreed to accept transfer for this patient. This will be nonurgent transfer hopefully within the next 48 hours
but may take up to 1 week.
[2024-09-11] MEDS: KCL 40 MEQ PO (09:20)
[2024-09-11] MEDS: ELIQUIS 5 MG PO ×2 (09:21→20:00)
[2024-09-11] MEDS: PACERONE 200 MG PO (09:21)
[2024-09-11] MEDS: PROSCAR 5 MG PO (09:21)
[2024-09-11 10:48] VITALS: BP 122/73; BP 134/74; BP 139/75; PULSE 52; PULSE 57; O2SAT 99
--- NOTE | 2024-09-11 10:59 | W.PN.HOSP.TC ---
Addendum entered and electronically signed by Rajan Linder MD 09/11/24 14:24:
Right hip PJI with abscess with cellulitis
Plan to transfer to [place] for explant with spacer when bed avaiable
COntniue IV atb per ID rec's with Zosyn
Warm compress of picc site
Original Note:
Today's Communication/Plan
-
Warm compress of right arm
Will call [facility] to check for bed availability
Replete K
Assessment / Plan
Assessment / Plan
83yo M coming from [facility] with ongoing wound to lateral aspect of his right hip from earlier this month following a fall event, presented to the ED with severe right hip/groin pain, making it difficult to bear weight on the right hip.
CT Pelvis W/o Iv Contrast (09/02)
- Bilateral hip arthroplasties in anatomic position with marked beam hardening artifact.
- No gross recent cortical fracture about the bony pelvis although cannot be entirely excluded on the basis of this study.
Hip x-ray (09/04)
- There is no fracture or dislocation, bony destruction, or erosive change
MRI with and without contrast (09/04)
- No signal changes to indicate acute osteomyelitis-No hip joint effusion or synovitis-4.1 cm loculated fluid collection posterior to the right hip for which an infected collection cannot be excluded.
Chronic conditions prior to admission
Paroxysmal A-fib
BPH
Bilateral hip arthroplasties
Left knee surgery
Allergy history
Allergic to penicillin from previous records
Assessment and plan
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
-Right hip wound culture (obtained in the ED) positive for E. coli, Morganella, diphtheroid, enterococci
-Repeat anaerobic ulcer culture-no anaerobes isolated
-Meropenem started in ED- ID switched to cefepime/metronidazole on 09/03-course completed on 09/06 and switched to Zosyn on 09/07
-Underwent IRAD drainage (09/05): preliminary culture of joint aspiration positive for Streptococcus and IR guided wound culture positive for Morganella morganii
-Appreciate ID-medical treatment with 6 weeks of IV antibiotics followed by suppression if no surgery planned-patient ideally needs a spacer
-Appreciate orthopedics-Dr. Bauer spoke with Dr. Carlson's office and requested documents were faxed-Dr. Carlson did not accept patient- Ortho suggested transfer to [facility]
-Dr. Linder spoke with [facility] yesterday regarding transfer- Dr. Drake has accepted patient- Currently waiting on bed availability
-Oxycodone 5 and morphine 1 mg every 6 hours for pain management
-Activity limited due to hip pain
-PICC line placed 09/09- Overnight nurse noted warmness and erythema around PICC line. DVT ruled out with US. Does not appear to be cellulitis. Recommend warm compress.
# Hypokalemia
Replete as needed
# History of BPH
Continue finasteride
# History of A-fib
Continue Eliquis-adjusted dose to 5
Continue amiodarone
Spoke to patient's daughter, Danya, yesterday and updated her on treatment plan.
CODE STATUS: Full code
Anticipated Discharge: 24 - 48 hours
Subjective/Interval History
-
Date of Service: September 11, 2024
Patient does not offer any complaints other than being constipated for the last two days.
Objective Data
-
Labs:
Laboratory Results
09/11/24
04:58
WBC 10.4
Hgb 9.8 L
Hct 28.8 L
Plt Count 281
Sodium 136
Potassium 3.4 L
Chloride 104
Carbon Dioxide 29
BUN 17
Creatinine 0.7
Glucose 81
Calcium 8.2 L
Vital Signs:
Vital Signs
Temp Pulse Resp BP Pulse Ox
98.4 F 53 18 149/76 96
12/05/24 07:30 09/11/24 07:30 09/11/24 07:30 09/11/24 07:30 09/11/24 07:30
I&O
09/10/24 09/11/24 09/12/24
06:59 06:59 06:59
Intake Total 970 / 970 1330 / 1330
Output Total 645 / 645 1100 / 1100
Balance 325 / 325 230 / 230
Review of Systems
-
History Source: Patient
All other systems: Reviewed and negative
Abdomen/GI: Reports Constipated
Physical Exam
-
HEENT: Normocephalic, Moist Mucous Membranes and Anicteric
Respiratory: Clear to Auscultation
Cardiac: Regular Rhythm and S1/S2
GI: Soft, Nontender, Nondistended and Normal Bowel Sounds
Musculoskeletal: No Clubbing, No Cyanosis, No Edema and Other (Pressure wound on lateral aspect of right hip, minimal purulent discharge, nontender, no surrounding erythema; difficult to ambulate because of right hip pain)
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
Neuro: Awake, Alert, Oriented and Other
Psych: Calm
--- NOTE | 2024-09-11 11:22 | W.PN.ID1 ---
Date of Service
Date of Service: September 11, 2024
Today's Communication
c/w zosyn
awaiting transfer
Assessment / Plan
Proven Late PJI - at least due to Strep - suspect polymicrobial given contiguous abscess
Hip abscess s/p drainage
L hip replacement - remote
History of poor wound healing requiring subacute wound care
- joint fluid now with strep species; abscess with Morganella - likely polymicrobial; superficial culture with Morganella, E faecalis, E coli
- tolerating zosyn - continue
- twice weekly or weekly labs sufficient from ID perspective
- has PICC line
- awaiting transfer
Loss of sense of taste post covid
- can try umami flavors which sometimes are spared, family will try bringing in some greek style food
Chief Complaint
-: Other (late PJI, abscess, chronic wound)
Subjective / Review of Systems
afebrile
bp stable
without leukocytosis
comlains that since covid all foods taste sour
going to try some ondansetron
Vital Signs / Physical Exam
Vital Signs
Vital Signs
Temp Pulse Resp BP Pulse Ox
98.4 F 53 18 149/76 96
09/11/24 07:30 09/11/24 07:30 09/11/24 07:30 09/11/24 07:30 09/11/24 07:30
Physical Exam
Constitutional: No Acute Distress
Cardiovascular: Regular Rate
Pulmonary: Symmetric and Non Labored
Gastrointestinal: Non Distended
Skin: Negative Rash or Jaundice
Wound: Other (deferred dressing take down today)
Neurological: Awake
Objective Data
Lab Data
Lab Results
09/11/24 04:58
09/11/24 04:58
Estimated Creat Clear 84 ml/min 09/11/24 04:58
Total Bilirubin 0.5 mg/dl (0.2-1.3) 09/08/24 08:01
AST 34 U/L (17-59) 09/08/24 08:01
ALT 18 U/L (0-50) 09/08/24 08:01
Alkaline Phosphatase 83 U/L (38-126) 09/08/24 08:01
C-Reactive Protein 195.80 mg/L (0.0-10.00) H 09/04/24 06:51
Most recent labs reviewed.
Micro Results:
09/05/24 12:40 Body Fluid Culture - Final
Joint Fluid Streptococcus parasanguis
Gram Stain - Final
09/05/24 12:40 Anaerobic Culture - Final
Hip - Right NO ANAEROBES ISOLATED
09/05/24 12:33 Wound Culture - Final
Abscess Morganella morganii
Gram Stain - Final
09/05/24 12:33 Anaerobic Culture - Final
Abscess NO ANAEROBES ISOLATED
09/04/24 17:14 Anaerobic Culture - Final
Abscess NO ANAEROBES ISOLATED
09/03/24 16:45 Wound Culture - Final
Ulcer Morganella morganii
Enterococcus faecalis
Escherichia coli
Gram Stain - Final
09/02/24 14:06 Wound Culture - Final
Hip - Right Escherichia coli
Morganella morganii
Enterococcus faecalis
Diptheroids
Gram Stain - Final
09/02/24 20:44 MRSA Screen - Final
Nose No Methicillin Resistant Staphylococcus aureus isolated.
Care Review
Plan reviewed with: Physician (Dr Mckee - lab frequency)
[2024-09-11 11:30] VITALS: BP 128/72
--- NOTE | 2024-09-11 13:42 | CM ---
business operations manager reviewed patient's chart and per notes plan is for patient to transfer to [facility] for possible procedure.
Plan; Patient to transfer to [facility] when bed is available.
--- NOTE | 2024-09-11 14:49 | WOUNDNOTE ---
[facility] RN Note: RN Yoselin recently changed R hip dressing. She stated wound appeared mostly pink that could be visualized, small amount of drainage. R hip dressing D+I. Plan is transfer to [place] for R hip. Sacral skin less open, 1 small stage 2 pressure
injury with red sacral/buttocks skin suspect r/t moisture.
--- NOTE | 2024-09-11 14:53 | WOUNDNOTE ---
[facility] RN Note: SANJUANITA Wyatt recently changed patient's R hip dressing. She stated wound appeared mostly pink that could be visualized, small amount of drainage. R hip dressing D+I. Plan is transfer to [place] for R hip when bed available. Sacral skin less
open, there is one small stage 2 pressure injury with red sacral/buttocks skin suspect r/t moisture. Calazime being used. Silicone border foam applied to sacrum. Patient turned to L semi side lying position with help from SANJUANITA Wyatt. Heels off bed
with pillow. Skin on heels intact. Protective foam dressing changed on heels. Patient has an air chair cushion. Po intake documented between 45-100% Will sign off. Call if needed.
[2024-09-11 15:00] VITALS: BP 158/76
--- NOTE | 2024-09-11 18:19 | W.DCSUMMARY ---
Discharge Summary
Discharge Data
Date of Admission: 09/02/24
Date of Discharge: 09/11/24
-
Pending Results: No
Hospital Course
Patient is a 83yo M presenting from [facility] with ongoing wound to lateral aspect of his right hip from earlier this month following a fall event. He presented to ED with severe right hip pain earlier in the day, making it
difficult to bear weight on the right side and difficult to ambulate. Wound cultures were sent in the ER and Empir[facility] IV Meropenem started. CT of pelvis in the ED showed no gross recent cortical fracture. Patient was admitted to telemetry for
further evaluation. Wound was probed 6.5 cm deep in the posterior lateral direction to bone. Initial wound culture obtained in the ED came back positive for E. coli, Morganella, diphtheroid, enterococci. MRI with and without contrast did not show
osteomyelitis, however, 4.1 cm loculated fluid collection posterior to the right hip was seen.
ID was consulted. Per ID, Meropenem was switched to cefepime/metronidazole on 09/03 (course completed on 09/06). Orthopedics also consulted who recommended IR image guided aspiration of the right IDNIO joint to send for cardiology for evaluation of
prosthetic joint infection. ID recommended continue antibiotic therapy with Zosyn (started on 09/07 and continued until date of transfer (09/11)). IR-guided abscess culture came back positive for Morganella morganii. Also, ultrasound-guided joint
fluid aspiration culture came back positive for Streptococcus parasanguis. Anaerobic culture came back negative. Per Ortho, patient required explant and spacer; however, equipment and support for acute postop care were not available at this
facility. Documents were faxed to Dr. Carlson, patient's knee surgeon, to evaluate possible acceptance of procedure; however, Dr. Carlson did not except patient. Meanwhile, PICC line was placed on 09/09. Hospitalist team coordinated transfer to
[facility] to address his right total hip arthroplasty PJI. Dr. Pennington agreed to accept transfer for this patient.
He was maintained on home finasteride for control of BPH throughout stay. Eliquis dose was adjusted to 5 and he was maintained on Eliquis and amiodarone for control of A-fib during stay. Hypokalemia was repleted as needed.
CT Pelvis W/o Iv Contrast (09/02)
- Bilateral hip arthroplasties in anatomic position with marked beam hardening artifact.
- No gross recent cortical fracture about the bony pelvis although cannot be entirely excluded on the basis of this study.
Wound culture 09/03: positive for E. coli, Morganella, diphtheroid, enterococci
MRI with and without contrast (09/04)
- No signal changes to indicate acute osteomyelitis, No hip joint effusion or synovitis, however , 4.1 cm loculated fluid collection posterior to the right hip for which an infected collection would not be excluded was seen seen.
Joint fluid culture 09/05: Positive for Streptococcus parasanguis
Abscess culture 09/05: Positive for Morganella Morgagni
Medical team made aware that a bed is available for Mr. Fall at [facility] this afternoon. Consent was obtained and transfer forms completed. Patient to be transported via ambulance to [facility] later today.
Discharge Plan
-
Patient Disposition: Acute Care Hospital
Condition: Fair
Discharge Orders:
Discharge Patient (As Directed); Ordered 09/11/24
Ordered By: Krish Mckee
Discharge Date and Time
Print Language: SAUDI ARABIAN
[2024-09-11 19:25] VITALS: BP 141/80
== END 2024-09-11 21:29 | disposition short-term general hospital (02) | DRG 559 ==
LOC: 4 WEST ACU 14:07
PROVIDERS: Family Medicine; Internal Medicine; Physician Assistant; Radiology Diagnostic Radiology; Radiology Vascular & Interventional Radiology; Student in an Organized Health Care Education/Training Program; ADMITTING PHYSICIAN Internal Medicine; ATTENDING PHYSICIAN Hospitalist; CONSULT PHYSICIAN Student in an Organized Health Care Education/Training Program; EMERGENCY PHYSICIAN Emergency Medicine; FAMILY PHYSICIAN Internal Medicine Geriatric Medicine; OTHER PHYSICIAN Student in an Organized Health Care Education/Training Program; PRIMARYCARE PHYSICIAN Physical Medicine & Rehabilitation Pain Medicine
PROC: 0J9L3ZZ Drainage of Right Upper Leg Subcutaneous Tissue and Fascia, Percutaneous Approach (ICD-10-PCS; 2024-09-05)
PROC: 0S993ZZ Drainage of Right Hip Joint, Percutaneous Approach (ICD-10-PCS; 2024-09-05)
PROC: 02HV33Z Insertion of Infusion Device into Superior Vena Cava, Percutaneous Approach (ICD-10-PCS; 2024-09-08)
DX: T84.51XA Infection and inflammatory reaction due to internal right hip prosthesis, initial encounter (principal); L89.214 Pressure ulcer of right hip, stage 4; L02.415 Cutaneous abscess of right lower limb; M00.251 Other streptococcal arthritis, right hip; L03.115 Cellulitis of right lower limb; L89.152 Pressure ulcer of sacral region, stage 2; B96.20 Unspecified Escherichia coli [E. coli] as the cause of diseases classified elsewhere; B95.2 Enterococcus as the cause of diseases classified elsewhere; B96.89 Other specified bacterial agents as the cause of diseases classified elsewhere; B95.4 Other streptococcus as the cause of diseases classified elsewhere; I48.0 Paroxysmal atrial fibrillation; N40.0 Benign prostatic hyperplasia without lower urinary tract symptoms; E87.6 Hypokalemia; K59.00 Constipation, unspecified; D72.829 Elevated white blood cell count, unspecified; Z96.643 Presence of artificial hip joint, bilateral; Z88.0 Allergy status to penicillin; Z79.01 Long term (current) use of anticoagulants; Z96.659 Presence of unspecified artificial knee joint; Y83.8 Other surgical procedures as the cause of abnormal reaction of the patient, or of later complication, without mention of misadventure at the time of the procedure
CPT/HCPCS: 10160; 20610; 71045; 72192; 73502; 73723; 76942; 77002; 80048; 80053; 81003; 81015; 83735; 85025; 85027; 86140; 87015; 87070; 87071; 87075; 87077; 87186; 87205; 93005; 93971; 96374; 96376; 97116; 97530; 99285; A9575